=== PATIENT | male | born 1950 | race Caucasian/White ===

== ENCOUNTER → 2018-09-10 09:48 | Outpatient (CLI) | payer MEDICARE, SELFPAY ==
[2018-09-10 11:52] LABS: PSA,Total- Diagnostic 8.95 ng/mL (0.0-4.0)
== END ==
PROVIDERS: Family Provider Family Medicine; PCP Family Medicine; Referring Provider Urology; Visit Provider Urology
DX: R97.20 Elevated prostate specific antigen [PSA] (principal)
CPT/HCPCS: 36415; 84153

== ENCOUNTER → 2019-02-14 09:50 | Outpatient (CLI) | payer MEDICARE, SELFPAY ==
[2018-10-23 13:56] VITALS: BMI 24.3
[2019-02-14 11:16] LABS: PSA,Total- Diagnostic 8.88 ng/mL (0.0-4.0)
== END ==
PROVIDERS: Family Provider Family Medicine; PCP Family Medicine; Referring Provider Urology; Visit Provider Urology
DX: R97.20 Elevated prostate specific antigen [PSA] (principal)
CPT/HCPCS: 36415; 84153

== ENCOUNTER → 2019-10-16 09:23 | Outpatient (CLI) | payer MEDICARE, SELFPAY ==
[2019-10-16 09:01] VITALS: BMI 24.3
--- NOTE | 2019-10-16 10:12 | RAD_ITS ---
STUDY: X-RAY - RIGHT SHOULDER REASON FOR EXAM: Male, 68 years old. Pain. TECHNIQUE: 4 view(s) of the shoulder. COMPARISON: None. FINDINGS: There is moderate degenerative arthrosis of the glenohumeral articulation. There is degenerative arthrosis of the acromioclavicular joint without inferior osseous spur formation. Normal acromion. There is no acute fracture, dislocation or destructive osseous pathology. Normal humeral head and visualized proximal humerus. The soft tissue structures are unremarkable. Normal visualized pulmonary apex. RAD/Shoulder min 2 Views IMPRESSION: Degenerative changes of the right shoulder. Electronically Signed: Ramsey Vivas DO at 18:32 EST Tel [phone], Service support ,
[2019-10-16 12:29] LABS: ALB/GLOB Ratio 1.3 RATIO (0.9-2.4); AST(SGOT) 18 U/L (15-37); Alanine Aminotransfer ALT/SGPT 32 U/L (16-61); Albumin, Serum 4.1 g/dL (3.2-5.0); Alkaline Phosphatase 61 U/L (45-117); Anion Gap 5 (5-15); BUN 17 mg/dL (7-18); BUN/Creat Ratio 19.7 RATIO (10-20); Calcium,Total 9.1 mg/dL (8.5-10.1); Chloride 104 mmol/L (98-107); Cholesterol 188 mg/dL (200); Creatinine, Serum 0.86 mg/dL (0.70-1.30); EST Glomerular Filtration Rate 93 mL/min (>60); Est Glom Filt Rate - Afr Amer 112 mL/min (>60); Globulin 3.1 g/dL (2.2-4.2); Glucose 103 mg/dL (74-106); High Density Lipoprotein 45 mg/dL; PSA,Total - Annual Screen 7.85 ng/mL (0.00-4.00); Potassium 4.1 mmol/L (3.5-5.1); Protein, Total 7.2 g/dL (6.4-8.2); Sodium Level 139 mmol/L (136-145); Triglycerides 111 mg/dL; Very Low Density Lipoprotein 22 mg/dL (5-40)
== END ==
PROVIDERS: Family Provider Family Medicine; PCP Family Medicine; Referring Provider Family Medicine; Visit Provider Family Medicine
DX: M12.811 Other specific arthropathies, not elsewhere classified, right shoulder (principal); E78.5 Hyperlipidemia, unspecified; E11.9 Type 2 diabetes mellitus without complications; R97.20 Elevated prostate specific antigen [PSA]
CPT/HCPCS: 36415; 73030; 80053; 80061; 84153; G0103

== ENCOUNTER → 2020-03-25 | Outpatient (CLI) | payer MEDICARE, SELFPAY ==
[2020-03-17 11:10] VITALS: BMI 24.3
[2020-03-25 15:25] LABS: Hemoglobin A1c 5.9 % (3.8-5.6)
[2020-03-25 15:29] LABS: Cholesterol 201 mg/dL (200); High Density Lipoprotein 44 mg/dL; PSA,Total- Diagnostic 7.08 ng/mL (0.0-4.0); Triglycerides 222 mg/dL; Very Low Density Lipoprotein 44 mg/dL (5-40)
== END | disposition home or self-care (01) ==
LOC: LABSPEC 14:37
PROVIDERS: PCP Family Medicine; Referring Provider Family Medicine; Visit Provider Family Medicine
DX: E11.9 Type 2 diabetes mellitus without complications (principal); R97.20 Elevated prostate specific antigen [PSA]
CPT/HCPCS: 80061; 83036; 84153

== ENCOUNTER → 2020-09-25 08:18 | Outpatient (CLI) | payer MEDICARE, SELFPAY ==
[2020-03-17 11:10] VITALS: BMI 24.3
[2020-09-25 09:43] LABS: ALB/GLOB Ratio 1.4 RATIO (0.9-2.4); AST(SGOT) 20 U/L (15-37); Alanine Aminotransfer ALT/SGPT 33 U/L (16-61); Albumin, Serum 4.2 g/dL (3.2-5.0); Alkaline Phosphatase 65 U/L (45-117); Anion Gap 4 (5-15); BUN 16 mg/dL (7-18); BUN/Creat Ratio 18.5 RATIO (10-20); Calcium,Total 9.2 mg/dL (8.5-10.1); Chloride 102 mmol/L (98-107); Cholesterol 176 mg/dL (200); Creatinine, Serum 0.87 mg/dL (0.70-1.30); EST Glomerular Filtration Rate 92 mL/min (>60); Est Glom Filt Rate - Afr Amer 112 mL/min (>60); Globulin 3.1 g/dL (2.2-4.2); Glucose 101 mg/dL (74-106); High Density Lipoprotein 45 mg/dL; Potassium 3.7 mmol/L (3.5-5.1); Protein, Total 7.3 g/dL (6.4-8.2); Sodium Level 137 mmol/L (136-145); Triglycerides 105 mg/dL; Very Low Density Lipoprotein 21 mg/dL (5-40)
[2020-09-27 12:29] LABS: PSA, Total 8.6 ng/mL (0.0-4.0)
== END ==
PROVIDERS: PCP Family Medicine; Referring Provider Family Medicine; Visit Provider Family Medicine
DX: E11.9 Type 2 diabetes mellitus without complications (principal); R97.20 Elevated prostate specific antigen [PSA]
CPT/HCPCS: 36415; 80053; 80061; 84153

== ENCOUNTER → 2021-03-02 09:38 | Outpatient (CLI) | payer MEDICARE, SELFPAY ==
[2021-03-02 09:30] VITALS: BMI 24.3
[2021-03-02 13:18] LABS: Anion Gap 6 (5-15); BUN 18 mg/dL (7-18); BUN/Creat Ratio 23.7 RATIO (10-20); Calcium,Total 9.3 mg/dL (8.5-10.1); Chloride 102 mmol/L (98-107); Creatinine, Serum 0.76 mg/dL (0.70-1.30); EST Glomerular Filtration Rate 107 mL/min (>60); Est Glom Filt Rate - Afr Amer 130 mL/min (>60); Glucose 112 mg/dL (74-106); Potassium 4.4 mmol/L (3.5-5.1); Sodium Level 139 mmol/L (136-145)
== END ==
PROVIDERS: PCP Family Medicine; Referring Provider Family Medicine; Visit Provider Family Medicine
DX: E11.9 Type 2 diabetes mellitus without complications (principal); R97.20 Elevated prostate specific antigen [PSA]
CPT/HCPCS: 36415; 80048; 84153

== ENCOUNTER → 2022-03-02 | Outpatient (CLI) | payer MEDICARE, SELFPAY ==
[2022-03-02 12:31] LABS: ALB/GLOB Ratio 1.2 RATIO (0.9-2.4); AST(SGOT) 20 U/L (15-37); Alanine Aminotransfer ALT/SGPT 34 U/L (16-61); Albumin, Serum 3.8 g/dL (3.2-5.0); Alkaline Phosphatase 56 U/L (45-117); Anion Gap 8 (5-15); BUN 16 mg/dL (7-18); BUN/Creat Ratio 21.2 RATIO (10-20); Chloride 105 mmol/L (98-107); Creatinine, Serum 0.75 mg/dL (0.70-1.30); EST Glomerular Filtration Rate 108 mL/min (>60); Est Glom Filt Rate - Afr Amer 130 mL/min (>60); Globulin 3.1 g/dL (2.2-4.2); Glucose 111 mg/dL (74-106); PSA,Total- Diagnostic 6.88 ng/mL (0.0-4.0); Potassium 4.3 mmol/L (3.5-5.1); Protein, Total 6.9 g/dL (6.4-8.2); Sodium Level 139 mmol/L (136-145)
== END | disposition home or self-care (01) ==
LOC: BIMLAB 08:45
PROVIDERS: PCP Family Medicine; Visit Provider Family Medicine
DX: E11.9 Type 2 diabetes mellitus without complications (principal); R97.20 Elevated prostate specific antigen [PSA]
CPT/HCPCS: 36415; 80053; 84153

== ENCOUNTER → 2022-04-22 | Outpatient (CLI) | payer MEDICARE, SELFPAY ==
--- NOTE | 2022-04-22 08:56 | NEURO ---
NCS and/or EMG Patient Report Ordering Doctor: Rambo Warren DATE OF SERVICE: 04/22/22 Indication: Intermittent bilateral hand numbness and tingling. Symptoms are primarily in the first three digits and positional in nature. Hands are equal in terms of severity. History of bilateral carpal tunnel syndrome and release in 1982. Findings: Nerve conduction studies were performed in the right and left upper extremities. The right median motor study recording the abductor pollicis brevis showed a reduced amplitude, prolonged distal latency and borderline conduction velocity. The right ulnar motor study recording the abductor digiti minimi showed a normal amplitude, normal distal latency and normal conduction velocity. No conduction block or focal slowing was present across the elbow. The right median sensory response recording digit two showed a reduced amplitude, prolonged latency and markedly slowed conduction velocity. The right ulnar sensory response recording digit five showed a borderline amplitude, normal latency and normal conduction velocity. The right radial sensory response recording over the extensor snuff box showed a normal amplitude, latency and conduction velocity. The left median motor study recording the abductor pollicis brevis showed a borderline amplitude, prolonged distal latency and borderline conduction velocity. The left ulnar motor study recording the abductor digiti minimi showed a normal amplitude, normal distal latency and normal conduction velocity. No conduction block or focal slowing was present across the elbow. The left median sensory response recording digit two showed a borderline amplitude, prolonged latency and markedly slowed conduction velocity. The left ulnar sensory response recording digit five showed a normal amplitude, latency and conduction velocity. The left radial sensory response recording over the extensor snuff box showed a normal amplitude, latency and conduction velocity. Needle EMG of the right upper extremity muscles was performed. Active denervation was seen in the abductor pollicis brevis muscle. Motor units in the abductor pollicis brevis were distant and few. All other motor unit morphology, activation and recruitment patterns were normal. Limited needle EMG of the left abductor pollicis brevis was performed given the symmetry of the patient's symptoms. No denervation was seen, but occasional fasciculations were recorded. Motor units were large amplitude with long duration and reduced recruitment. Impression: This is an abnormal study. 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 The lesions are demyelinating with significant secondary axonal loss. The fibrillation and fasciculation potentials seen in the thenar muscles are suggestive of active axonal injury. These findings are compatible with the clinical diagnosis of recurrent carpal tunnel syndrome. Finally, there is no electrophysiologic evidence of superimposed cervical radiculopathy or brachial plexopathy in the right upper extremity. Lalito Bland D.O. Procedures Neurology CF Procedures [id number]: [id number] Musc tst done w/nerv tst davey (interp) (59)
== END | disposition home or self-care (01) ==
LOC: PSN 07:14
PROVIDERS: PCP Family Medicine; Referring Provider Family Medicine; Visit Provider Family Medicine
DX: R20.2 Paresthesia of skin (principal)
CPT/HCPCS: 95885; 95886; 95911

== ENCOUNTER → 2022-09-07 | Outpatient (CLI) | payer MEDICARE, SELFPAY ==
[2022-09-07 13:12] LABS: PSA,Total- Diagnostic 8.32 ng/mL (0.0-4.0)
== END | disposition home or self-care (01) ==
LOC: BIMLAB 08:52
PROVIDERS: PCP Family Medicine; Referring Provider Family Medicine; Visit Provider Family Medicine
DX: R97.20 Elevated prostate specific antigen [PSA] (principal)
CPT/HCPCS: 36415; 84153

== ENCOUNTER → 2022-11-24 | Outpatient (CLI) | payer MEDICARE, SELFPAY ==
[2022-11-24 16:17] LABS: Erythrocyte Sedimentation Rate 34 mm/hr (0-20)
[2022-11-24 16:27] LABS: Uric Acid 7.1 mg/dL (3.5-7.2)
== END | disposition home or self-care (01) ==
LOC: BIMLAB 14:37
PROVIDERS: PCP Family Medicine; Visit Provider Family Medicine
DX: M10.9 Gout, unspecified (principal)
CPT/HCPCS: 36415; 84550; 85652

== ENCOUNTER 2022-12-21 08:47 | Day surgery (SDC) | payer MEDICARE, SELFPAY ==
[2022-12-21] VITALS (7 sets, daily range): BP systolic 115–145; BP diastolic 52–82; PULSE 65–76; RESP 16–96; TEMP 36.3–36.9; O2SAT 94–97; BMI 27.2
[2022-12-21] MEDS: Lactated Ringers 1,000 ML 15 ML IV (09:30)
[2022-12-21 09:35] LABS: Bedside Glucose 120 mg/dL (74-106)
--- NOTE | 2022-12-21 11:50 | CHAPLAIN ---
Type of Pastoral Visit _x__ Initial Visit ___ Follow-up Visit ___ On-call Visit ___ General Patient Visit ___ Spiritual Assessment ___ Family Conference ___ Bereavement ___ Rapid Response ___ Code Blue ___ Other (describe below) Pastoral Care Referral From _x__ Patient ___ Family ___ Nurse ___ Physician ___ Environmental Health Nurse ___ Middle School Band Teacher ___ Other (describe below) Sacrament/Intervention _x__ Active listening ___ Anointing ___ Methodist ___ Bereavement ___ Communion ___ Cristel exploration ___ ___ Life review _x__ Prayer ___ Reconciliation ___ Sacrament of Sick ___ Supportive presence ___ Wedding ___ Other (describe below) Pastoral Comments pre surgery prayer and support for patient and family members
--- NOTE | 2022-12-21 12:10 | HP.PCM_ITS ---
HPI - General HPI Narrative HIRAL VAN, is a 72 M who presents for bilateral carpal tunnel release ECTR. OK to proceed. no changes to h and p. Both wrists marked. no further questions. still has some grease under his nails, warned could increase infection risk. Will take extra care to clean hand and wrists. explained post op restrictions. MR#: [id number] Acct: [id number] Name:HIRAL MCGRAW Rep #: [id number] : 1950 ? ? Provider: Dr. Augustine Barrientos MD Age/Sex:? 72/M ? ? Location: [facility] [place] Status: Signed Intake Intake Visit Reasons:?right wrist Chief Complaint: BL hands Is patient in pain?: No Allergies No Known Allergies Allergy (Verified 11/14/22 08:03) Medications aspirin 81 mg tablet,delayed release 81 mg PO DAILY 04/17/19 [History Confirmed 11/24/22] cinnamon bark 500 mg capsule (Cinnamon) 500 mg PO DAILY 04/17/19 [History Confirmed 11/24/22] glucosamine sulfate 500 mg tablet (Glucosamine) 500 mg PO BID 04/17/19 [History Confirmed 11/24/22] saw palmetto 500 mg capsule 500 mg PO BID 04/17/19 [History Confirmed 11/24/22] ibuprofen 200 mg tablet (Advil) 200 mg PO QHS PRN pain 10/16/19 [History Confirmed 11/24/22] vitamin B complex 1 cap PO DAILY #90 caps 06/30/21 [Rx Confirmed 11/24/22] lisinopril 20 mg-hydrochlorothiazide 25 mg tablet 1 tab PO QDAY #90 tabs 03/02/22 [Rx Confirmed 11/24/22] metformin 500 mg tablet 500 mg PO DAILY #90 tabs 09/07/22 [Rx Confirmed 11/24/22] simvastatin 40 mg tablet 40 mg PO QHS #90 tabs 09/07/22 [Rx Confirmed 11/24/22] PFSH Medical History? A-fib Heart murmur Hyperlipemia Hypertension Seasonal allergies Type 2 diabetes mellitus Surgical History? History of carpal tunnel release History of hernia repair Family History? Mother Asthma CVA (cerebral vascular accident)Father Parkinsons Social History? Smoking Status:? Never smoker alcohol intake:? never substance use type:? does not use what type of physical activity do you participate in:? none HPI right wrist Details: UrineParts of this documentation were recorded by a scribe, this documentation accurately reflects the service provided and the decisions made by me, Dr. Augustine Barrientos MD 11/24/22 [id number]. HIRAL VAN is a 72 year old M here today for follow-up on patient request to change his consent from unilateral to bilateral carpal tunnel release. He has a surgical date booked for in a few weeks. Likes to play trArthenaet. Had prior rel ease on both sides in the past. Ortho Exam General General: Yes no acute distress Neurologic: Yes alert and Yes oriented x3 Psychologic: Yes reasonable and appropriate Supplemental Info Impression: This is an abnormal study. 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 The lesions are demyelinating with significant secondary axonal loss. The fibrillation and fasciculation potentials seen in the thenar muscles are suggestive of active axonal injury. These findings are compatible with the clinical diagnosis of recurrent carpal tunnel syndrome. Finally, there is no electrophysiologic evidence of superimposed cervical radiculopathy or brachial plexopathy in the right upper extremity. Coding Level of Care Code Off vis,est,level 3 Diagnoses CTS (carpal tunnel syndrome)? G56.03 ? ? ? Laterality: bilateral Assessment and Plan Assessment and Plan (1) CTS (carpal tunnel syndrome): ?Status:?Acute ?Qualifiers: ?Laterality:?bilateral? Qualified Code(s):?G56.03 - Carpal tunnel syndrome, bilateral upper limbs ?Plan: 82-year-old man with evidence of bilateral carpal tunnel syndrome.? He wishes to change his consent form to have them both done at the same time.? Discussed the pros and cons risks and benefits of performing one side first versus bilateral he would like to change his consent form for bilateral endoscopic carpal tunnel release possible open.? I again reminded him there may be more risks with bilateral and that this is a revision surgery results may be more unpredictable.? In addition he was working on his vehicle had quite a bit of grease under his fingernails asked him the day of surgery to really make sure that he cleans under his nails and has his hands as clean as possible to mitigate the infection risk. Pros and cons risks and benefits were discussed with the patient including but not limited to infection, pain, stiffness, bleeding, damage to surrounding structures, neurovascular injury, recurrence or retear, failure or wear of hardware or fixation, instability, fracture, deep vein thrombosis and pulmonary embolism, anesthetic risks, patient dissatisfaction, need for further surgery and other risks.? Patient understood and wished to proceed with surgery, and signed the informed consent documentation. [facility], [facility] Medical History (Updated 12/14/22 @ 08:19 by Addie Andrade) A-fib Arthritis Back pain Diabetes Dietary restriction Heart murmur High cholesterol History of atrial fibrillation History of edema History of rheumatic fever History of stress test Hyperlipemia Hypertension Hypertension Leg cramps Non-smoker Seasonal allergies Shortness of breath on exertion Syncope Type 2 diabetes mellitus Wears glasses Home Medications aspirin 81 mg tablet,delayed release 81 mg PO DAILY 04/17/19 [History Last Taken Unknown] cinnamon bark 500 mg capsule (Cinnamon) 500 mg PO DAILY 04/17/19 [History Last Taken Unknown] glucosamine sulfate 500 mg tablet (Glucosamine) 500 mg PO BID 04/17/19 [History Last Taken Unknown] saw palmetto 500 mg capsule 500 mg PO BID 04/17/19 [History Last Taken Unknown] vitamin B complex 1 cap PO DAILY #90 caps 06/30/21 [Rx Last Taken Unknown] lisinopril 20 mg-hydrochlorothiazide 25 mg tablet 1 tab PO QDAY #90 tabs 03/02/22 [Rx Last Taken Unknown] metformin 500 mg tablet 500 mg PO DAILY #90 tabs 09/07/22 [Rx Last Taken Unknown] simvastatin 40 mg tablet 40 mg PO QHS #90 tabs 09/07/22 [Rx Last Taken Unknown] allopurinol 300 mg tablet 300 mg PO DAILY #90 tabs 11/30/22 [Rx Last Taken Unknown] Allergy/AdvReac Type Severity Reaction Status Date / Time No Known Allergies Allergy Verified 12/21/22 09:24 Family History Mother Asthma CVA (cerebral vascular accident) Father Parkinsons Surgical History (Updated 12/14/22 @ 08:19 by Addie Andrade) History of carpal tunnel release History of hernia repair Social History Smoking Status: Never smoker alcohol intake: never substance use type: does not use what type of physical activity do you participate in: none Vital Signs Vital Signs Vital Signs: 12/21/22 09:25 12/21/22 09:25 Temperature 98.4 F Temperature Source Temporal Pulse Rate 76 Respiratory Rate 16 Respiratory Pattern Normal Blood Pressure 136/68 H Blood Pressure Mean 90 Pulse Ox 95 Oxygen Delivery Method Room Air Weight Weight: 174 lb 2.643 oz Body Mass Index (BMI) 27.2 Results Lab / Micro Data Labs: Laboratory Results - last 24 hr 12/21/22 09:16: POC Glucose 120 H
[2022-12-21] MEDS: Cefazolin 2 GM in 0.9% Normal Saline 100 ML IV (12:45)
--- NOTE | 2022-12-21 14:02 | OP.PCM_ITS ---
Problems Associated Problem List Diagnoses (1) Bilateral carpal tunnel syndrome: Report of Operation Date of Procedure: 12/21/22 Pre-Operative Diagnosis: bilat carpal tunnel syndrome Post-Operative Diagnosis: same Surgery/Procedure Performed:: bilat ECTR Surgeon: Augustine Barrientos Type of Anesthesia: General and Local Anesthesiologist: Marc Salvador Estimated Blood Loss (mL): 5 Description of Procedure: Patient was brought to the operating room theater.? The patient was administered 2 g of IV Ancef prior to the start of the procedure.? Placed supine on the operating room table.? Anesthesia induced GA.? SCDs on the legs.? Tourniquet applied to the bilat operative extremity, appropriately padded. Arm table used. Both wrists, operative extremity prepped and draped in the usual sterile fashion with chlorhexidine-based prep solution allowing over 3 minutes drying time prior to draping.? Preoperative timeout performed to confirm the site patient and the surgery. Procedure carried out on both sides Right : Used the Arthex center line endoscopic carpal tunnel kit / technique. Tourniquet up 250mm. ? I made a transverse 2 cm incision in line with the? transverse wrist crease.? This was in line with the fourth digit.? I carried the dissection down through skin and subcutaneous tissue achieved meticulous hemostasis. Just ulnar to palmaris tendon.? I incised the antebrachial fascia.? I passed sequential dilators into the carpal tunnel along the radial border of the Guyon's canal aiming for the fourth digit with the hand in extension.? I used a synovial elevator to identify the transverse fibers of the transverse carpal tunnel ligament.? Passed the scope into the carpal tunnel. Once I had identified the full proximal and distal extent of the ligament I fully released the ligament under direct visualization by deploying the blade and slowly withdrawing the scope made sequential passes until I no longer felt tension as well as the entire extent of the ligament was released under direct visualization.?Sounded the tunnel with del real tenotomy scissors, complete release, no bands. Arthroscope light was more visible through the skin. Pictures taken and saved. Wound thoroughly irrigated.? Tourniquet let down prior to end of the case and meticulous hemostasis achieved.? Thorough irrigation.? ? Incision closed with 3- 0 Monocryl.? Steri-Strips were applied after the skin was cleaned and dried. Adaptic, gauze, loose wrapped Esau. Left : Used the Arthex center line endoscopic carpal tunnel kit / technique.? Tourniquet up 250mm. I made a transverse 2 cm incision in line with the? transverse wrist crease.? This was in line with the fourth digit.? I carried the dissection down through skin and subcutaneous tissue achieved meticulous hemostasis. Just ulnar to palmaris tendon.? I incised the antebrachial fascia.? I passed sequential dilators into the carpal tunnel along the radial border of the Guyon's canal aiming for the fourth digit with the hand in extension.? I used a synovial elevator to identify the transverse fibers of the transverse carpal tunnel ligament.? Passed the scope into the carpal tunnel. Once I had identified the full proximal and distal extent of the ligament I fully released the ligament under direct visualization by deploying the blade and slowly withdrawing the scope made sequential passes until I no longer felt tension as well as the entire extent of the ligament was released under direct visualization.?Sounded the tunnel with del real tenotomy scissors, complete release, no bands. Arthroscope light was more visible through the skin. Pictures taken and saved. Wound thoroughly irrigated.? Tourniquet let down prior to end of the case and meticulous hemostasis achieved.? Thorough irrigation.? ? Incision closed with 3- 0 Monocryl.? Steri-Strips were applied after the skin was cleaned and dried. Adaptic, gauze, loose wrapped Esau. Patient woken up,? transferred off the operating room table and taken to postanesthetic care unit in stable condition. All sponge needle instrument counts were correct no complications.? Plan for the patient to be discharged home according to day surgery criteria when they are comfortable. Follow-up in the office in 2 days time. Complications none Admit VTE Documentation VTE Present on Admission: No VTE Mechan Device Prophylaxis: None VTE Pharm Prophylaxis ordered?: No Reason prophylaxis not ordered:: Treatment Not Indicated Procedures Musculoskeletal 20xxx-29xxx: Other Procedure See Report
--- NOTE | 2022-12-21 14:05 | DCINST_ITS ---
Discharge Instructions Diet Discharge Diet: No restrictions Activity Discharge Activity: Return to Normal Activity Ice area for (Minutes): 10 Additional Activity Instructions:: ok for finger and wrist ROM, no heavy gripping or twisting Dressing / Incision Call your doctor if your incision/area has: Continuous Slow Oozing, Sudden Increased Bleeding, Increased Pain/ Swelling, Increased Redness, Foul Smelling Discharge and Swelling at the incision site Change Dressing in: do not change dressing Follow Up Care Please Follow Up With: Augustine Barrientos MD When: 2 days Test Results: Test results from this visit will be discussed in further detail at your follow- up appointment, if applicable. Discharge Plan Admission Attending Provider: Augustine Barrientos Primary Care Provider: Rambo Warren Discharge Orders/Prescriptions Prescriptions: No Action aspirin 81 mg tablet,delayed release (DR/EC) 81 mg PO DAILY saw palmetto 500 mg capsule 500 mg PO BID glucosamine sulfate [Glucosamine] 500 mg tablet 500 mg PO BID cinnamon bark [Cinnamon] 500 mg capsule 500 mg PO DAILY vitamin B complex Capsule 1 cap PO DAILY Qty: 90 1RF lisinopril-hydrochlorothiazide 20-25 mg tablet 1 tab PO QDAY Qty: 90 3RF simvastatin 40 mg tablet 40 mg PO QHS Qty: 90 1RF metformin 500 mg tablet 500 mg PO DAILY Qty: 90 1RF allopurinol 300 mg tablet 300 mg PO DAILY Qty: 90 0RF Referrals / Follow Up: Rambo Warren DO [Primary Care Provider] - Disposition Discharge Orders: Discharge Patient (Routine); Ordered 12/21/22 Ordered By: Augustine Barrientos
[2022-12-21 15:11] LABS: Bedside Glucose 94 mg/dL (74-106)
== END 2022-12-21 16:00 | disposition home or self-care (01) ==
LOC: SDC 08:54 → AC 08:55
PROVIDERS: PCP Family Medicine; Referring Provider Orthopaedic Surgery Sports Medicine; Visit Provider Orthopaedic Surgery Sports Medicine
PROC: (CPT 29848; principal; 2022-12-21 10:15)
DX: G56.03 Carpal tunnel syndrome, bilateral upper limbs (principal); E11.40 Type 2 diabetes mellitus with diabetic neuropathy, unspecified; I10 Essential (primary) hypertension; E78.00 Pure hypercholesterolemia, unspecified; Z79.82 Long term (current) use of aspirin; Z79.84 Long term (current) use of oral hypoglycemic drugs; E78.5 Hyperlipidemia, unspecified
CPT/HCPCS: 29848; 01810; 82962; J7120; J2405

== ENCOUNTER → 2022-12-27 | Outpatient (CLI) | payer MEDICARE, SELFPAY ==
[2022-12-27 12:55] LABS: Uric Acid 4.2 mg/dL (3.5-7.2)
== END | disposition home or self-care (01) ==
LOC: BIMLAB 11:37
PROVIDERS: PCP Family Medicine; Referring Provider Family Medicine; Visit Provider Family Medicine
DX: M10.9 Gout, unspecified (principal)
CPT/HCPCS: 36415; 84550

== ENCOUNTER → 2023-04-17 | Outpatient (CLI) | payer MEDICARE, SELFPAY ==
[2023-04-17 15:38] LABS: ALB/GLOB Ratio 1.4 RATIO (0.9-2.4); AST(SGOT) 22 U/L (15-37); Alanine Aminotransfer ALT/SGPT 32 U/L (16-61); Albumin, Serum 3.9 g/dL (3.2-5.0); Alkaline Phosphatase 64 U/L (45-117); Anion Gap 6 (5-15); BUN 15 mg/dL (7-18); BUN/Creat Ratio 18.5 RATIO (10-20); Calcium,Total 9.1 mg/dL (8.5-10.1); Chloride 104 mmol/L (98-107); Cholesterol 175 mg/dL (200); Creatinine, Serum 0.81 mg/dL (0.70-1.30); EST Glomerular Filtration Rate 99 mL/min (>60); Est Glom Filt Rate - Afr Amer 120 mL/min (>60); Globulin 2.8 g/dL (2.2-4.2); Glucose 99 mg/dL (74-106); High Density Lipoprotein 46 mg/dL; Potassium 4.1 mmol/L (3.5-5.1); Protein, Total 6.7 g/dL (6.4-8.2); Sodium Level 138 mmol/L (136-145); Triglycerides 111 mg/dL; Very Low Density Lipoprotein 22 mg/dL (5-40)
== END | disposition home or self-care (01) ==
LOC: BIMLAB 13:24
PROVIDERS: PCP Family Medicine; Visit Provider Family Medicine
DX: E11.9 Type 2 diabetes mellitus without complications (principal); I10 Essential (primary) hypertension; R97.20 Elevated prostate specific antigen [PSA]
CPT/HCPCS: 36415; 80053; 80061; 83036; 84153

== ENCOUNTER → 2023-10-18 | Outpatient (CLI) | payer MEDICARE, SELFPAY | END | disposition home or self-care (01) | LOC: BIMLAB 13:29 | PROVIDERS: PCP Family Medicine; Referring Provider Family Medicine; Visit Provider Family Medicine | DX: R97.20 Elevated prostate specific antigen [PSA] (principal) | CPT/HCPCS: 36415; 84153 ==

== ENCOUNTER → 2023-11-14 | Outpatient (CLI) | payer MEDICARE, SELFPAY ==
--- OUTSIDE RECORDS SUMMARY | 2023-11-14 06:29 | XMS RPT_ITS | CCD ---
Author Name Unknown Address [address] [place] [address] Organization [facility] Care Team Providers Care Photograph Enlarger Name Role Phone SHAYNA CASTANON Unavailable Unavailable SHAYNA CASTANON Unavailable Unavailable Results Test Name Value Interpretation Reference Range Facil ity Encounters Encounter Date Encounter Type Care Provider Facility Start: 04-11-2018 End: 04-12-2018 Ambulatory SHAYNA CASTANON Facility:[facility] Payers Date Payer Category Payer Unknown [id number] Summary Purpose Family History No Family History Records Found Advance Directives No Advanced Directives Records Found Additional Source Comments (unrecognized sect ion and content) No Status Records Found INFORMATION SOURCE (unrecogn ized section and content) FOR RECORDS PERTAINING TO PATIENTS WHO ARE OR HAVE BEEN ENROLLED IN A CHEMICAL DEPENDENCY/SUBSTANCEABUSE PROGRAM, SOME INFORMATION MAY BE OMITTED. This clinical summary was aggregated from multiple sources. Caution should be exercised in using it in the provision of clinical care. This summary normalizes information from multiple sources, and as a consequence, information in this document may materially change the coding, format and clinical context of patient data. In addition, data may be omitted in some cases. CLINICAL DECISIONS SHOULD BE BASED ON THE PRIMARY CLINICAL RECORDS. [employer] [facility]. provides no warranty or guarantee of the accuracy or completeness of information in this document.
--- NOTE | 2023-11-14 06:40 | MRI_ITS ---
STUDY: MRI RIGHT SHOULDER REASON FOR EXAM: Male, 73 years old. Rotator cuff arthropathy. TECHNIQUE: Standardized fat and water weighted pulse sequences were obtained in all 3 orthogonal planes. COMPARISON: Left shoulder radiographs dated 10/16/2019. FINDINGS: There is supraspinatus tendinosis with a high-grade partial thickness articular surface tear, overall measuring 5 mm in length and 5 mm in width (coronal T2 series 6 image 17; sagittal T2 series 7 image 10). There is infraspinatus and subscapularis tendinosis. Normal teres minor tendon. Normal supraspinatus muscle. Normal infraspinatus muscle. Normal subscapularis muscle. Normal teres minor muscle. There is glenohumeral arthrosis with joint space narrowing, marginal osteophyte formation, high-grade chondromalacia, and articular surface remodeling. There is degenerative tearing of the superior and posterior glenoid labrum. Intact humeral head and visualized proximal humerus. There is tendinosis of the intracapsular long biceps tendon. There is hypertrophic acromioclavicular arthrosis, with inferior osteophyte formation, with mild effacement of the supraspinatus myotendinous junction. There is a Type II morphology (curved), with a neutral orientation. There is no subacromial-subdeltoid bursal fluid. Normal visualized coracohumeral and coracoacromial ligaments. Normal quadrilateral space. Normal axillary space. Normal deltoid muscle. Normal trapezius muscle. MRI/Upper Ext Joint Only(Routine) IMPRESSION: Supraspinatus tendinosis with a 5 x 5 mm high-grade partial thickness articular surface tear. Hypertrophic acromioclavicular arthrosis, with inferior osteophyte formation, with mild effacement of the supraspinatus myotendinous junction. Infraspinatus and subscapularis tendinosis. Glenohumeral arthrosis with degenerative tearing of the superior and posterior glenoid labrum. Intracapsular long biceps tendinosis. Electronically Signed: Duncan Hickey MD at 8:16 EST ,
== END | disposition home or self-care (01) ==
PROVIDERS: PCP Family Medicine; Referring Provider Family Medicine; Visit Provider Family Medicine
DX: M12.811 Other specific arthropathies, not elsewhere classified, right shoulder (principal)
CPT/HCPCS: 73221

== ENCOUNTER → 2024-01-09 | Outpatient (CLI) | payer MEDICARE, SELFPAY ==
--- OUTSIDE RECORDS SUMMARY | 2024-01-09 13:13 | XMS RPT_ITS | CCD ---
Author Name Unknown Address [address] [place] [address] Organization [facility] Care Team Providers Care Voice Writing Reporter Name Role Phone SHAYNA CASTANON Unavailable Unavailable SHAYNA CASTANON Unavailable Unavailable Results Test Name Value Interpretation Reference Range Facil ity Encounters Encounter Date Encounter Type Care Provider Facility Start: 04-11-2018 End: 04-12-2018 Ambulatory SHAYNA CASTANON Facility:[facility] Payers Date Payer Category Payer Unknown [id number] Summary Purpose Family History No Family History [...] BE BASED ON THE PRIMARY CLINICAL RECORDS. [employer] [facility]. provides no warranty or guarantee of the accuracy or completeness of information in this document.
[2024-01-11 12:09] LABS: PSA, Free 1.11 ng/mL; PSA, Free % 13.2 % (.)
== END | disposition home or self-care (01) ==
LOC: LAB 12:38
PROVIDERS: PCP Family Medicine; Referring Provider Urology; Visit Provider Urology
DX: R97.20 Elevated prostate specific antigen [PSA] (principal)
CPT/HCPCS: 36415; 84153; 84154

== ENCOUNTER → 2024-02-05 | Outpatient (CLI) | payer MEDICARE, SELFPAY ==
--- NOTE | 2024-02-05 | IMM_PTH ---
PATIENT: [facility] VAN [facility] U[facility][id number] AGE/SX: 73/M ROOM: RE02/05/[address]: Dr. Ray Houser MD : 1950 BED: DIS: 02/05/2024 SPEC #: [id number] RECD: 02/07/24 13:36 STATUS: ARYA REQ #: [id number] GARY: 02/05/24 00:[address]: Ray Houser DEPT: IMMUNOHISTOCHEMISTRY RECD BY: Sincere Calderon ENTERED: 02/07/24 13:38 SP TYPE: IMMUNO OTHR DR: Dr. Rambo Warren, DO Tissues: B - PROSTATE RIGHT F - PROSTATE LEFT Procedures: 34BE12 (add) P40 (initial) PHYSICIAN & INSTITUTION [place] [id number] SPECIMEN INFORMATION: Tissue Source: B- Prostate, right mid, F- Prostate, left base Clinical Info: Elevated PSA Specimen Number: [id number] B&F CPT code: 78481 METHODOLOGY: Deparaffinized sections of prefer/formalin-fixed tissue or PAP/DQ stained slides are incubated with monoclonal/polyclonal antibodies/oligonucleotide probes. Localization is made via biotin free immunoperoxidase method. Appropriate controls are performed and reacted as expected. Results on target cell population are indicated in the following table: RESULTS: ANTIBODY / CLONE RESULT Block B P40 (BC28) negative 34BE12 (34BE12) negative Block F P40 (BC28) negative 34BE12 (34BE12) negative These tests were developed and their performance characteristics determined by [facility]. They may not have been cleared or approved by the U.S. Food and Drug Administration. The FDA has determined that such clearance or approval is not necessary. The above immunohistochemical/dualISH markers are ordered and reviewed by the Pathologist. INTERPRETATION: B. Prostate, right mid, biopsy: Adenocarcinoma. F. Prostate, left base, biopsy: Adenocarcinoma SJ/mr 02/08/24
--- NOTE | 2024-02-05 13:00 | PROSBIL_PTH ---
PAT[facility] U[id number] AGE/SX: 73/M ROOM: RE02/05/[address]: Dr. Ray Houser MD : 1950 BED: DIS: 02/05/2024 SPEC #: [id number] RECD: 02/06/24 08:41 STATUS: ARYA RERosa #: [id number] GARY: 02/05/24 13:[address]: Ray Houser DEPT: SURGICAL PATHOLOGY RECD BY: Jennyfer Ghosh ENTERED: 02/06/24 08:41 SP TYPE: PROST BX DONNA DR: Dr. Rambo Warren, DO Tissues: A - PROSTATE RIGHT B - PROSTATE RIGHT C - PROSTATE RIGHT D - PROSTATE LEFT E - PROSTATE LEFT F - PROSTATE LEFT Procedures: PROSTATE BX HEADER OPERATION: Prostate biopsy PRE-OP DIAGNOSIS: Elevated PSA TISSUE SUBMITTED: A - Right apex, B - Right mid, C - Right base, D - Left apex, E - Left mid, F - Left base MICROSCOPIC DIAGNOSIS A. Right prostate, apex, core biopsy: Prostatic tissue, negative for malignancy. B. Right prostate, mid, core biopsy: Prostatic adenocarcinoma. Benita grade: 3+3=6 Number of cores involved: 1/2 Proportion of tissue involved: ~5% Perineural invasion: Not identified. Greatest tumor length: 0.2 cm Chronic inflammation. See comment. C. Right prostate, base, core biopsy: Prostatic tissue, negative for malignancy. D. Left prostate, apex, core biopsy: Prostatic tissue, negative for malignancy. Focal minimal acute and chronic inflammation. E. Left prostate, mid, core biopsy: Prostatic tissue, negative for malignancy. F. Left prostate, base, core biopsy: Prostatic adenocarcinoma. Hector grade: 3+3=6 Number of cores involved: 2/2 Proportion of tissue involved: ~5 % Perineural invasion: Not identified. Greatest tumor length: 0.2 cm, discontinuous. Focal high-grade prostatic intraepithelial neoplasia (HGPIN). See comment. SJ/mr 02/07/24 COMMENT B&F. Immunohistochemistry ([id number]) supports the above diagnosis. Case has been reviewed in consultation with Dr. Cabezas who concurs with the above diagnosis. IDC:AM MICROSCOPIC DESCRIPTION Slides are reviewed. GROSS DESCRIPTION A - Received is one container designated prostate, right apex. The specimen consists of two elongated fragments of light osorio-white soft tissue each measuring 1.5cm and 1.7cm in length and 0.1 cm in diameter. The specimen is totally submitted in one cassette. B - Received is one container designated prostate, right mid. The specimen consists of two elongated fragments of light osorio-white soft tissue each measuring 1.2 cm in length and 0.1 cm in diameter. The specimen is totally submitted in one cassette. C - Received is one container designated prostate, right base. The specimen consists of two elongated fragments of light osorio-white soft tissue each measuring 1.0cm and 1.3 cm in length and 0.1 cm in diameter. The specimen is totally submitted in one cassette. D - Received is one container designated prostate, left apex. The specimen consists of two elongated fragments of light osorio-white soft tissue each measuring 1.4cm and 1.5 cm in length and 0.1 cm in diameter. The specimen is totally submitted in one cassette. E - Received is one container designated prostate, left mid. The specimen consists of two elongated fragments of light osorio-white soft tissue each measuring 1.0cm and 1.5 cm in length and 0.1 cm in diameter. The specimen is totally submitted in one cassette. F - Received is one container designated prostate, left base. The specimen consists of two elongated fragments of light osorio-white soft tissue each measuring 1.2 and 1.5 cm in length and 0.1 cm in diameter. The specimen is totally submitted in one cassette. BELKYS/ 02/06/24 TC:0 CPT: G0146
== END | disposition home or self-care (01) ==
PROVIDERS: PCP Family Medicine; Referring Provider Urology; Visit Provider Urology
DX: R97.20 Elevated prostate specific antigen [PSA] (principal)
CPT/HCPCS: 88305; 88341; 88342; G0416

== ENCOUNTER → 2024-02-15 | Outpatient (CLI) | payer MEDICARE, SELFPAY ==
[2024-02-15 16:45] LABS: Absolute Lymphocyte Count 0.99 X10^3/uL (0.83-4.51); Absolute Neutrophil Count 5.8 X10^3/uL (2.0-7.7); Basophil# 0.04 X10^3/uL; Basophil% 0.5 % (0-1); Eosinophil# 0.18 X10^3/uL; Eosinophils% 2.3 % (0-5); Hematocrit 49.6 % (40-54); Hemoglobin 15.5 g/dL (13.0-16.5); Lymphocyte # 0.99 X10^3/ul (0.83-4.51); Lymphocyte % 12.6 % (19-41); Mean Corp Hgb Conc 31.3 g/dL (32-36); Mean Corpuscular Hgb 28.1 pg (27.0-32.0); Mean Corpuscular Volume 89.9 fL (80-94); Mean Platelet Vol. 11.7 fl (6.2-12.0); Monocyte# 0.82 X10^3/uL; Monocyte% 10.4 % (0-10); NRBC Flagged by Analyzer 0 % (0-5); Neutrophil # 5.82 X10^3/uL (2.7-7.7); Neutrophil % 73.9 % (47-70); Platelet Count 230 K/mm3 (150-450); RBC Distribution Width SD 42.5 fl (35.1-43.9); Red Blood Count 5.52 M/mm3 (4.6-6.2); White Blood Count 7.9 K/mm3 (4.4-11.0)
[2024-02-15 17:18] LABS: ALB/GLOB Ratio 1.2 RATIO (0.9-2.4); AST(SGOT) 23 U/L (15-37); Alanine Aminotransfer ALT/SGPT 32 U/L (16-61); Albumin, Serum 3.6 g/dL (3.2-5.0); Alkaline Phosphatase 63 U/L (45-117); Anion Gap 6 (5-15); BUN 16 mg/dL (7-18); BUN/Creat Ratio 16.9 RATIO (10-20); Calcium,Total 9.3 mg/dL (8.5-10.1); Chloride 105 mmol/L (98-107); Creatinine, Serum 0.94 mg/dL (0.70-1.30); EST Glomerular Filtration Rate 83 mL/min (>60); Est Glom Filt Rate - Afr Amer 100 mL/min (>60); Globulin 3.1 g/dL (2.2-4.2); Glucose 141 mg/dL (74-106); Potassium 3.8 mmol/L (3.5-5.1); Protein, Total 6.7 g/dL (6.4-8.2); Sodium Level 139 mmol/L (136-145)
[2024-02-15 17:23] LABS: BNP,B-Type NATRIURETIC PEPTIDE 33.7 pg/mL (0-100)
== END | disposition home or self-care (01) ==
LOC: BIMLAB 14:42
PROVIDERS: PCP Family Medicine; Referring Provider Physician Assistant; Visit Provider Physician Assistant
DX: I10 Essential (primary) hypertension (principal); R06.00 Dyspnea, unspecified
CPT/HCPCS: 36415; 80053; 83880; 85025

== ENCOUNTER → 2024-03-13 | Outpatient (CLI) | payer MEDICARE, SELFPAY ==
--- NOTE | 2024-03-13 19:19 | STRESSREP_ITS ---
Stress Test Report Exercise myocardial perfusion stress test. 73-year-old man with a history of dyspnea on exertion Stress protocol: Resting EKG demonstrates normal sinus rhythm with a rate of 67 bpm resting blood pressure is 134/82 mmHg. The patient exercised according to the regular Juan Carlos protocol for a total duration of 6 minutes attaining a maximum heart rate of 142 bpm which was 97% of maximum predicted heart rate; the maximum workload was 7 metabolic equivalents. At rest there were no ST or T wave changes noted to suggest ischemia and at peak exercise upsloping ST changes only were noted which did not meet the criteria for ischemia. No clinical angina was noted the test was terminated due to the target heart rate being achieved/fatigue. The peak blood pressure was 162/82 mmHg. Rate-pressure product was 21 700. Myocardial perfusion protocol. 13.4 mCi of technetium 99m sestamibi was injected at rest. The patient exercised according to regular Juan Carlos protocol for total duration of 6 minutes and at peak exercise 45 mCi of technetium 99m sestamibi was injected stress images were obtained stress and rest images were reconstructed in comparing the short axis vertical long and horizontal long axis. Gated images were also obtained. Perfusion SPECT analysis: Review of the stress images demonstrate normal uptake of tracer noted in all a reas of the myocardium. The resting images similarly demonstrate normal uptake of tracer noted in all areas of the myocardium. No areas of reversibility are noted to suggest ischemia no previous infarct was noted. Gated SPECT analysis: The gated ejection fraction is 60%. Conclusion: Normal exercise myocardial perfusion stress test at a moderate workload Preserved ejection fraction.
== END | disposition home or self-care (01) ==
LOC: CVS 06:36
PROVIDERS: PCP Family Medicine; Referring Provider Physician Assistant; Visit Provider Physician Assistant
DX: R06.09 Other forms of dyspnea (principal)
CPT/HCPCS: 78452; 93017; A9500; A4216

== ENCOUNTER → 2024-08-20 | Outpatient (CLI) | payer MEDICARE, SELFPAY | END | disposition home or self-care (01) | LOC: LAB 09:05 | PROVIDERS: PCP Family Medicine; Referring Provider Nurse Practitioner; Visit Provider Nurse Practitioner | DX: C61 Malignant neoplasm of prostate (principal) | CPT/HCPCS: 36415; 84153 ==

== ENCOUNTER → 2024-10-14 | Outpatient (CLI) | payer MEDICARE, SELFPAY ==
--- NOTE | 2024-10-14 19:00 | CT_ITS ---
STUDY: CT RIGHT SHOULDER REASON FOR EXAM: Male, 73 years old. Blueprint planning for reverse shoulder replacement. RADIATION DOSAGE (If Supplied By Facility): CTDIvol = ( 23.57 ) mGy, DLP = ( 674.06 ) mGycm TECHNIQUE: The patient was scanned in a multi detector CT scanner. High resolution transaxial imaging was performed without the administration of intravenous contrast material. Sagittal and coronal images were reconstructed. Individualized dose optimization techniques were used for this CT. COMPARISON: Right shoulder radiographs dated 10/16/2019. FINDINGS: There is severe degenerative arthrosis of the right glenohumeral joint with [id number], marginal osteophyte formation, remodeling of the articular surfaces, and subchondral sclerosis/cyst formation. There is flattening and retroversion of the posterior glenoid rim. Normal glenoid neck and visualized scapula. Intact humeral head, neck and tuberosities. Normal coracoid process. There is no demonstrated acute fracture. Normal visualized lateral clavicle. There is mild hypertrophic acromioclavicular arthrosis. There is a Type II morphology (curved), with a neutral orientation. Normal visualized muscles and soft tissue structures. 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 Flattening and retroversion of the posterior glenoid rim. Mild hypertrophic acromioclavicular arthrosis. Electronically Signed: Duncan Hickey MD at 14:41 EST ,
== END | disposition home or self-care (01) ==
PROVIDERS: PCP Family Medicine; Referring Provider Orthopaedic Surgery Sports Medicine; Visit Provider Orthopaedic Surgery Sports Medicine
DX: M12.811 Other specific arthropathies, not elsewhere classified, right shoulder (principal)
CPT/HCPCS: 73200

== ENCOUNTER 2024-12-04 06:24 | Day surgery (SDC) | payer MEDICARE, SELFPAY ==
[2024-11-21 09:16] LABS: Absolute Lymphocyte Count 0.68 X10^3/uL (0.83-4.51); Basophil# 0.06 X10^3/uL; Basophil% 0.7 % (0-1); Eosinophil# 0.41 X10^3/uL; Hematocrit 46.9 % (40-54); Hemoglobin 14.8 g/dL (13.0-16.5); Lymphocyte # 0.68 X10^3/ul (0.83-4.51); Lymphocyte % 8.3 % (19-41); Mean Corp Hgb Conc 31.6 g/dL (32-36); Mean Corpuscular Hgb 28.2 pg (27.0-32.0); Mean Corpuscular Volume 89.3 fL (80-94); Monocyte% 12.2 % (0-10); NRBC Flagged by Analyzer 0 % (0-5); Neutrophil # 6.02 X10^3/uL (2.7-7.7); Neutrophil % 73.7 % (47-70); Platelet Count 222 K/mm3 (150-450); RBC Distribution Width CV 13.8 % (11.6-14.6); RBC Distribution Width SD 45.1 fl (35.1-43.9); Red Blood Count 5.25 M/mm3 (4.6-6.2); White Blood Count 8.2 K/mm3 (4.4-11.0)
[2024-11-21 09:33] LABS: Prothrombin Time (Protime)PT. 13.7 SECONDS (11.7-14.9)
[2024-11-21 09:34] LABS: Partial Thromboplast Time 28.3 Seconds (24.1-36.2)
[2024-11-21 10:01] LABS: Anion Gap 7 (5-15); BUN 21 mg/dL (7-18); BUN/Creat Ratio 23.2 RATIO (10-20); Calcium,Total 9.6 mg/dL (8.5-10.1); Chloride 105 mmol/L (98-107); EST Glomerular Filtration Rate 87 mL/min (>60); Est Glom Filt Rate - Afr Amer 105 mL/min (>60); Glucose 139 mg/dL (74-106); Potassium 4.1 mmol/L (3.5-5.1); Sodium Level 139 mmol/L (136-145)
[2024-11-21 10:16] LABS: Magnesium 1.9 mg/dL (1.6-2.6)
[2024-11-21 11:46] LABS: Hemoglobin A1c 6.2 % (3.8-5.6)
--- NOTE | 2024-11-21 11:52 | PAT.ANE_ITS ---
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 When Was Last Pacemaker Check QUESTION #4 FULL TEXT: You/Your Family Experience fever (hyperthermia) with Anesthesia Last Oral Intake Last Oral intake: Last Oral Intake NPO since Meds taken in AM with sips of water? Meds patient instructed to take am of surgery PONV PONV - senior android developer: PONV - senior android developer Female No 11/20/24 11:22 HX of Motion Sickness No 11/20/24 11:22 HX of N/V After Surgery No 11/20/24 11:22 Non-Smoker Yes 11/20/24 11:22 Duration of Surgery greater Yes 11/20/24 11:22 than 60 minutes Number of Risk Factors 2 11/20/24 11:22 PONV Score Moderate Risk 11/20/24 11:22 Height & Weight Height & Weight: Anesthesia: Height & Weight Height 5 ft 7 in 05/08/24 11:06 Respiratory Assessment Respiratory Assessment - senior android developer: Respiratory Tract Infection Hx - senior android developer Hx Respiratory Tract Infection No 11/20/24 11:22 STOP Sleep Apnea STOP Sleep Apnea - senior android developer: STOP Sleep Apnea - senior android developer Hx Hypertension Yes: CONTROLLED WITH MED 11/20/24 11:22 Hx Sleep Apnea No 11/20/24 11:22 CPAP BIPAP Do you snore loudly (louder Yes 11/20/24 11:22 than talking or can be heard Do you often feel tired/ Yes 11/20/24 11:22 fatigued/ sleepy during daytime? Has anyone observed you stop No 11/20/24 11:22 breathing during sleep? STOP Results Positive 11/20/24 11:22 QUESTION #5 FULL TEXT : Do you snore loudly (louder than talking or can be heard through closed doors)? 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 Specify any problems Hx of Preganancy in last 3 N/A 11/20/24 11:22 Months Nurse Filling Out Transfusion DSCHRIBER 11/20/24 11:22 & Questions: Date: 11/20/24 11/20/24 11:22 Time: 11:24 11/20/24 11:22 Patient unable to answer at this time (ie. confused, unrespo /Reproduction History /Reproductive History - senior android developer: /Reproductive Hx- senior android developer Hx Now No 11/20/24 11:22 Gestational Age (in weeks): EDC: Hx Hx Para Hx Section SAB No 11/20/24 11:22 PFS Medical History (Updated 11/20/24 @ 11:29 by Addie Andrade) Loss of hearing Prostate disease Wears glasses Diabetes Arthritis High cholesterol Syncope Dietary restriction Non-smoker Shortness of breath on exertion Leg cramps History of stress test Hypertension History of rheumatic fever History of atrial fibrillation A-fib Heart murmur Type 2 diabetes mellitus Seasonal allergies Hyperlipemia Hypertension Home Medications ?Medication ?Instructions ?Recorded ?Last Taken ?Type aspirin 81 mg tablet,delayed 81 mg PO DAILY 04/17/19 Unknown History release azelastine 137 mcg (0.1 %) nasal 2 spray intranasal Q12H 05/08/24 Unknown History spray fluticasone propionate 50 1 spray intranasal BID 05/08/24 Unknown History mcg/actuation nasal spray,suspension lisinopril 20 1 tab PO QDAY #90 tabs 05/21/24 Unknown Rx mg-hydrochlorothiazide 25 mg tablet cetirizine 10 mg tablet 10 mg PO QPM 08/19/24 Unknown History metformin 500 mg tablet 500 mg PO DAILY #90 TABLETS 09/25/24 Unknown Rx allopurinol 300 mg tablet 300 mg PO DAILY #90 tabs 11/19/24 Unknown Rx simvastatin 40 mg tablet 40 mg PO QHS #90 tabs 11/19/24 Unknown Rx Allergy/AdvReac Type Severity Reaction Status Date / Time No Known Allergies Allergy Verified 11/20/24 11:16 Family History Mother Asthma CVA (cerebral vascular accident) Father Parkinsons Surgical History (Updated 11/20/24 @ 11:29 by Addie Andrade) History of hernia repair History of carpal tunnel release Social History Smoking Status: Never smoker alcohol intake: never substance use type: does not use what type of physical activity do you participate in: none Audit: Pertinent Findings Pertinent Findings Stress test pertinent findings: 03/13/2024 EF 60% normal perfusion at moderate workload Recommendation Anesthesia Recommendation Anesthesia recommendation: OPTIMIZED for anesthesia
[2024-11-22 07:08] LABS: Fructosamine 214 umol/L (0-285)
[2024-12-04] VITALS (10 sets, daily range): BP systolic 92–124; BP diastolic 54–79; PULSE 67–77; RESP 16; TEMP 35.9–36.4; O2SAT 96–99; BMI 27.0
--- NOTE | 2024-12-04 | SHO_PTH ---
PATIENT: HIRAL VAN [facility] [facility] U[facility][id number] AGE/SX: 74/M ROOM: RE12/04/[address]: Dr. Augustine Barrientos MD : 1950 BED: DIS: 12/04/2024 SPEC #: [id number] RECD: 12/04/24 13:04 STATUS: ARYA RERosa #: [id number] GARY: 12/04/24 00:[address]: Augustine Barrientos DEPT: SURGICAL PATHOLOGY RECD BY: Amadeo Jimenez ENTERED: 12/04/24 13:05 SP TYPE: HUMERUS OTHR DR: Dr. Rambo Warren, DO Tissues: Humerus, NOS Procedures: Decalcification bone/plaque Surgery Specimen Level IV HEADER OPERATION: Right reverse total shoulder replacement PRE-OP DIAGNOSIS: Rotator cuff arthroplasty of right shoulder TISSUE SUBMITTED: Right humeral head MICROSCOPIC DIAGNOSIS Bone and tissue right shoulder, total shoulder replacement/resection: Humeral head with degenerative osteoarthritic changes. BELKYS. 12/10/2024 MICROSCOPIC DESCRIPTION Slides are reviewed. GROSS DESCRIPTION Received is one container labeled with the patient's name and designated bone and soft tissue. The specimen consists of a humeral head measuring 4.5 x 4.5 x 0.8 cm. The articular surface shows areas of erosion, eburnation and osteophyte formation. No soft tissue is identified. [place] sections are submitted in one cassette after decalcification. / SJ: 12/04/2024 TC:5 CPT: 92069, 64849
[2024-12-04] MEDS: 0.9% Normal Saline (1000mL) 1,000 ML 15 ML IV (06:35)
[2024-12-04] MEDS: Magnesium 2 GM for ERAS IV (07:09)
[2024-12-04] MEDS: Gabapentin 600 MG Tablet PO (07:23)
[2024-12-04] MEDS: Scopolamine 1mg/72hr Patch 1 PATCH TD (07:24)
[2024-12-04] MEDS: Acetaminophen 500 MG Tablet 1000 MG PO (07:24)
[2024-12-04] MEDS: Vancomycin HCl 1,250 MG in 0.9% Normal Saline (250mL Bag) 250 ML 167 MG IV (07:24)
--- NOTE | 2024-12-04 07:24 | PRE.ANES_ITS ---
ASA Classification* ASA Classification ASA Classification: 3 Assessment & Plan Anesthesia* Anesthesia Assessment Anesthesia Assessment: Discussed sedation and/or anesthesia options, risks, benefits, and alternatives with patient/parents/legal guardian/POA. Questions invited. The patient/parents/legal guardian/POA seems to understand and agrees to proceed with anesthesia plan. Reviewed the physical assessment, medical history, allergy history and patient home medications list prior to surgery/procedure/anesthetic and documented any changes. Performed airway and anesthesia risk assessments. Anesthesia Type Anesthesia Type: General and Block History Source History Obtained from:: Patient and Chart Anesthesia Focused Assessment* Temperature: 97.6 F Pulse Rate: 77 Blood Pressure: 124/76 Respiratory Rate: 16 Pulse Ox: 97 Oxygen Delivery Method: Room Air Airway Assessment Mouth opens: >3 cm Mallampati Score: II Teeth Condition: Caps/Crowns Neck Range of motion (ROM): Full ROM Focused Labs Anesthesia Preop lab: CBC WBC 8.2 K/mm3 (4.4-11.0) 11/21/24 08:54 11/21/24 RBC 5.25 M/mm3 (4.6-6.2) 11/21/24 08:54 11/21/24 Hgb 14.8 g/dL (13.0-16.5) 11/21/24 08:54 11/21/24 Hct 46.9 % (40-54) 11/21/24 08:54 11/21/24 Plt Count 222 K/mm3 (150-450) 11/21/24 08:54 11/21/24 CHEMISTRY Potassium 4.1 mmol/L (3.5-5.1) 11/21/24 08:54 11/21/24 Sodium 139 mmol/L (136-145) 11/21/24 08:54 11/21/24 Magnesium 1.9 mg/dL (1.6-2.6) 11/21/24 08:52 11/21/24 BUN 21 mg/dL (7-18) H 11/21/24 08:54 11/21/24 Creatinine 0.90 mg/dL (0.70-1.30) 11/21/24 08:54 11/21/24 Glucose 139 mg/dL (74-106) H 11/21/24 08:54 11/21/24 POC Glucose 136 mg/dL (74-106) H 12/04/24 10:58 12/04/24 COAG PT 13.7 SECONDS (11.7-14.9) 11/21/24 08:54 Pre-Assessment Diagnosis/Proposed Procedure Planned Operative Procedure(s): RIGHT SHOULDER REVERSE TOTAL SHOULDER ARTHROPLAS TY Anesthesia History 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 When Was Last Pacemaker Check QUESTION #4 FULL TEXT: You/Your Family Experience fever (hyperthermia) with Anesthesia Last Oral Intake Last Oral intake: Last Oral Intake NPO since 22:00 12/04/24 07:13 Meds taken in AM with sips of No 12/04/24 07:13 water? Meds patient instructed to take am of surgery PONV PONV - feed and farm management adviser: PONV - feed and farm management adviser Female No 11/20/24 11:22 HX of Motion Sickness No 11/20/24 11:22 HX of N/V After Surgery No 11/20/24 11:22 Non-Smoker Yes 11/20/24 11:22 Duration of Surgery greater Yes 11/20/24 11:22 than 60 minutes Number of Risk Factors 2 11/20/24 11:22 PONV Score Moderate Risk 11/20/24 11:22 Height & Weight Height & Weight: Anesthesia: Height & Weight Height 5 ft 6 in 12/04/24 07:13 Weight: 76 kg 12/04/24 07:13 Body Mass Index (BMI) 27.0 12/04/24 07:13 Respiratory Assessment Respiratory Assessment - feed and farm management adviser: Respiratory Tract Infection Hx - feed and farm management adviser Hx Respiratory Tract Infection No 11/20/24 11:22 STOP Sleep Apnea STOP Sleep Apnea - feed and farm management adviser: STOP Sleep Apnea - feed and farm management adviser Hx Hypertension Yes: CONTROLLED WITH MED 11/20/24 11:22 Hx Sleep Apnea No 11/20/24 11:22 CPAP BIPAP Do you snore loudly (louder Yes 11/20/24 11:22 than talking or can be heard Do you often feel tired/ Yes 11/20/24 11:22 fatigued/ sleepy during daytime? Has anyone observed you stop No 11/20/24 11:22 breathing during sleep? STOP Results Positive 11/20/24 11:22 QUESTION #5 FULL TEXT : Do you snore loudly (louder than talking or can be heard through closed doors)? 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 Specify any problems Hx of Preganancy in last 3 N/A 11/20/24 11:22 Months Nurse Filling Out Transfusion DSCHRIBER 11/20/24 11:22 & Questions: Date: 11/20/24 11/20/24 11:22 Time: 11:24 11/20/24 11:22 Patient unable to answer at this time (ie. confused, unrespo /Reproduction History /Reproductive History - feed and farm management adviser: /Reproductive Hx- feed and farm management adviser Hx Now No 11/20/24 11:22 Gestational Age (in weeks): EDC: Hx Hx Para Hx Section SAB No 11/20/24 11:22 Active Medications Active Medications: Current Medications Generic Name Dose Route Start Last Admin Trade Name Freq PRN Reason Stop Dose Admin Acetaminophen 1,000 mg 12/04/24 07:30 Acetaminophen 500 Mg Tablet PO 12/04/24 07:31 X1 ONE Dexamethasone Sodium Phosphate 10 mg 12/04/24 07:30 Dexamethasone 10 Mg/Ml Vial IV 12/04/24 07:31 X1 ONE Gabapentin 600 mg 12/04/24 07:30 Gabapentin 600 Mg Tablet PO 12/04/24 07:31 X1 ONE Cefazolin Sodium 2 gm/ N/A 20 mls @ 400 mls/hr 12/04/24 07:30 IV 12/04/24 07:32 PREOP ONE Tranexamic Acid 1,000 mg/ 110 mls @ 660 mls/hr 12/04/24 07:30 Sodium Chloride IV 12/04/24 07:39 X1 ONE Tranexamic Acid 1,000 mg/ 110 mls @ 660 mls/hr 12/04/24 07:30 Sodium Chloride IV 12/04/24 07:39 X1 ONE Lactated Ringer's 1,000 mls @ 125 mls/hr 12/04/24 07:30 IV 12/04/24 15:29 .Q8H GREGORIA Vancomycin HCl 1,250 mg/ 275 mls @ 167 mls/hr 12/04/24 07:30 Sodium Chloride IV 12/04/24 09:08 PREOP ONE Magnesium Sulfate 2 gm/ 104 mls @ 208 mls/hr 12/04/24 07:30 Dextrose IV 12/04/24 07:59 X1 ONE Sodium Chloride 1,000 mls @ 15 mls/hr 12/04/24 06:35 IV 12/09/24 19:54 .Q48H GREGORIA Protocol Insulin Human Lispro 1 - 6 unit 12/04/24 07:30 Insulin Lispro 100 Unit/Ml Insuln.Pen SC 12/04/24 18:00 Q4H PRN PRN BG>/= 180, SEE PROTOCOL Protocol Scopolamine HBr 1 patch 12/04/24 07:30 Scopolamine 1mg/72hr Patch TD 12/04/24 07:31 X1 ONE PFSH Medical History Loss of hearing Prostate disease Wears glasses Diabetes Arthritis High cholesterol Syncope Dietary restriction Non-smoker Shortness of breath on exertion Leg cramps History of stress test Hypertension History of rheumatic fever History of atrial fibrillation A-fib Heart murmur Type 2 diabetes mellitus Seasonal allergies Hyperlipemia Hypertension Home Medications ?Medication ?Instructions ?Recorded ?Last Taken ?Type aspirin 81 mg tablet,delayed 81 mg PO DAILY 04/17/19 0 12/03/24 History release azelastine 137 mcg (0.1 %) nasal 2 spray intranasal Q1 2H 05/08/24 12/03/24 History spray fluticasone propionate 50 1 spray intranasal BID 05/0812/03/24 History mcg/actuation nasal spray,suspension lisinopril 20 1 tab PO QDAY #90 tabs 05/2112/03/24 Rx mg-hydrochlorothiazide 25 mg tablet cetirizine 10 mg tablet 10 mg PO QPM 06/24/24 History metformin 500 mg tablet 500 mg PO DAILY #90 TABLETS 09/25/24 12/03/24 Rx allopurinol 300 mg tablet 300 mg PO DAILY #90 tabs 12/03/24 Rx simvastatin 40 mg tablet 40 mg PO QHS #90 tabs 12/03/24 Rx cephalexin 500 mg capsule 500 mg PO Q8H post op 3 days #9 12/04/24 Unknown Rx caps oxycodone-acetaminophen 5 mg-325 1 tab PO Q4H PRN pain 5 days #20 12/04/24 Unkn own Rx mg tablet (Endocet) tabs Allergy/AdvReac Type Severity Reaction Status Date / Time No Known Allergies Allergy Verified 12/04/24 06:58 Family History Mother Asthma CVA (cerebral vascular accident) Father Parkinsons Surgical History (Updated 11/20/24 @ 11:29 by Addie Andrade) History of hernia repair History of carpal tunnel release Social History Smoking Status: Never smoker alcohol intake: never substance use type: does not use what type of physical activity do you participate in: none Review of Systems (Anesthesia) ROS Narrative System reviewed and no additional complaints, except as documented.
--- NOTE | 2024-12-04 07:39 | PCM.PRE.AN2 ---
ASA Classification* ASA Classification ASA Classification: 3 Assessment & Plan Anesthesia* Anesthesia Assessment Anesthesia Assessment: Discussed sedation and/or anesthesia options, risks, benefits, and alternatives with patient/parents/legal guardian/POA. Questions invited. The patient/parents/legal guardian/POA seems to understand and agrees to proceed with anesthesia plan. Reviewed the physical assessment, medical history, allergy history and patient home medications list prior to surgery/procedure/anesthetic and documented any changes. Performed airway and anesthesia risk assessments. Anesthesia Type Anesthesia Type: General and Block History Source History Obtained from:: Patient and Chart Anesthesia Focused Assessment* Temperature: 97.6 F Pulse Rate: 77 Blood Pressure: 124/76 Respiratory Rate: 16 Pulse Ox: 97 Oxygen Delivery Method: Room Air Airway Assessment Mouth opens: >3 cm Mallampati Score: II Teeth Condition: Intact Neck Range of motion (ROM): Full ROM Focused Labs Anesthesia Preop lab: CBC WBC 8.2 K/mm3 (4.4-11.0) 11/21/24 08:54 RBC 5.25 M/mm3 (4.6-6.2) 11/21/24 08:54 Hgb 14.8 g/dL (13.0-16.5) 11/21/24 08:54 Hct 46.9 % (40-54) 11/21/24 08:54 Plt Count 222 K/mm3 (150-450) 11/21/24 08:54 CHEMISTRY Potassium 4.1 mmol/L (3.5-5.1) 11/21/24 08:54 Sodium 139 mmol/L (136-145) 11/21/24 08:54 Magnesium 1.9 mg/dL (1.6-2.6) 11/21/24 08:52 BUN 21 mg/dL (7-18) H 11/21/24 08:54 Creatinine 0.90 mg/dL (0.70-1.30) 11/21/24 08:54 Glucose 139 mg/dL (74-106) H 11/21/24 08:54 POC Glucose 94 mg/dL (74-106) 12/21/22 14:43 COAG PT 13.7 SECONDS (11.7-14.9) 11/21/24 08:54 Pre-Assessment Diagnosis/Proposed Procedure Planned Operative Procedure(s): RIGHT SHOULDER REVERSE TOTAL SHOULDER ARTHROPLASTY Anesthesia History Anesthesia History - supervisor assembly: Anesthesia History - supervisor assembly Hx Hospitalization No 11/20/24 11:22 Any Problems With Anesthesia No 11/20/24 11:22 Cholinesterase deficiency No 11/20/24 11:22 You/Your Family Experience No 11/20/24 11:22 fever (hyperthermia) with Relationship Recent Exposure to Contagious No 12/04/24 07:13 Disease Does patient have nerve No 11/20/24 11:22 stimulator Patient instructed to have device shut off --Does patient have Pacemaker No 12/04/24 07:13 or ICD? When Was Last Pacemaker Check QUESTION #4 FULL TEXT: You/Your Family Experience fever (hyperthermia) with Anesthesia Last Oral Intake Last Oral intake: Last Oral Intake NPO since 22:00 12/04/24 07:13 Meds taken in AM with sips of No 12/04/24 07:13 water? Meds patient instructed to take am of surgery PONV PONV - supervisor assembly: PONV - supervisor assembly Female No 11/20/24 11:22 HX of Motion Sickness No 11/20/24 11:22 HX of N/V After Surgery No 11/20/24 11:22 Non-Smoker Yes 11/20/24 11:22 Duration of Surgery greater Yes 11/20/24 11:22 than 60 minutes Number of Risk Factors 2 11/20/24 11:22 PONV Score Moderate Risk 11/20/24 11:22 Height & Weight Height & Weight: Anesthesia: Height & Weight Height 5 ft 6 in 12/04/24 07:13 Weight: 76 kg 12/04/24 07:13 Body Mass Index (BMI) 27.0 12/04/24 07:13 Respiratory Assessment Respiratory Assessment - supervisor assembly: Respiratory Tract Infection Hx - supervisor assembly Hx Respiratory Tract Infection No 11/20/24 11:22 STOP Sleep Apnea STOP Sleep Apnea - supervisor assembly: STOP Sleep Apnea - supervisor assembly Hx Hypertension Yes: CONTROLLED WITH MED 11/20/24 11:22 Hx Sleep Apnea No 11/20/24 11:22 CPAP BIPAP Do you snore loudly (louder Yes 11/20/24 11:22 than talking or can be heard Do you often feel tired/ Yes 11/20/24 11:22 fatigued/ sleepy during daytime? Has anyone observed you stop No 11/20/24 11:22 breathing during sleep? STOP Results Positive 11/20/24 11:22 QUESTION #5 FULL TEXT : Do you snore loudly (louder than talking or can be heard through closed doors)? 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 Specify any problems Hx of Preganancy in last 3 N/A 11/20/24 11:22 Months Nurse Filling Out Transfusion DSCHRIBER 11/20/24 11:22 & Questions: Date: 11/20/24 11/20/24 11:22 Time: 11:24 11/20/24 11:22 Patient unable to answer at this time (ie. confused, unrespo /Reproduction History /Reproductive History - supervisor assembly: /Reproductive Hx- supervisor assembly Hx Now No 11/20/24 11:22 Gestational Age (in weeks): EDC: Hx Hx Para Hx Section SAB No 11/20/24 11:22 Active Medications Active Medications: Current Medications Generic Name Dose Route Start Last Admin Trade Name Freq PRN Reason Stop Dose Admin Lactated Ringer's 1,000 mls @ 125 mls/hr 12/04/24 07:30 IV 12/04/24 15:29 .Q8H GREGORIA Vancomycin HCl 1,250 mg/ 275 mls @ 167 mls/hr 12/04/24 07:30 Sodium Chloride IV 12/04/24 09:08 PREOP ONE Magnesium Sulfate 2 gm/ 104 mls @ 208 mls/hr 12/04/24 07:30 Dextrose IV 12/04/24 07:59 X1 ONE Sodium Chloride 1,000 mls @ 15 mls/hr 12/04/24 06:35 IV 12/09/24 19:54 .Q48H [facility] Protocol Insulin Human Lispro 1 - 6 unit 12/04/24 07:30 Insulin Lispro 100 Unit/Ml Insuln.Pen SC 12/04/24 18:00 Q4H PRN PRN BG>/= 180, SEE PROTOCOL Protocol PFSH Medical History Loss of hearing Prostate disease Wears glasses Diabetes Arthritis High cholesterol Syncope Dietary restriction Non-smoker Shortness of breath on exertion Leg cramps History of stress test Hypertension History of rheumatic fever History of atrial fibrillation A-fib Heart murmur Type 2 diabetes mellitus Seasonal allergies Hyperlipemia Hypertension Home Medications ?Medication ?Instructions ?Recorded ?Last Taken ?Type aspirin 81 mg tablet,delayed 81 mg PO DAILY 04/17/19 12/03/24 History release azelastine 137 mcg (0.1 %) nasal 2 spray intranasal Q12H 05/08/24 12/03/24 History spray fluticasone propionate 50 1 spray intranasal BID 05/08/24 12/03/24 History mcg/actuation nasal spray,suspension lisinopril 20 1 tab PO QDAY #90 tabs 05/21/24 12/03/24 Rx mg-hydrochlorothiazide 25 mg tablet cetirizine 10 mg tablet 10 mg PO QPM 06/24/24 12/03/24 History metformin 500 mg tablet 500 mg PO DAILY #90 TABLETS 09/25/24 12/03/24 Rx allopurinol 300 mg tablet 300 mg PO DAILY #90 tabs 11/19/24 12/03/24 Rx simvastatin 40 mg tablet 40 mg PO QHS #90 tabs 11/19/24 12/03/24 Rx Allergy/AdvReac Type Severity Reaction Status Date / Time No Known Allergies Allergy Verified 12/04/24 06:58 Family History Mother Asthma CVA (cerebral vascular accident) Father Parkinsons Surgical History (Updated 11/20/24 @ 11:29 by Addie Andrade) History of hernia repair History of carpal tunnel release Social History Smoking Status: Never smoker alcohol intake: never substance use type: does not use what type of physical activity do you participate in: none Review of Systems (Anesthesia) ROS Narrative System reviewed and no additional complaints, except as documented. Physical Exam Const Orientation / Consciousness: awake Nutritional Appearance: obese
[2024-12-04 08:13] LABS: Bedside Glucose 125 mg/dL (74-106)
--- NOTE | 2024-12-04 08:43 | PCM.HP.STD ---
HPI - General HPI Narrative HIRAL VAN, is a 74 M who presents for right RTSA. ok to proceed. right shoulder marked, rab, post op discussion and narcotic counselling done. consent updated. plan for block. no further q's or concerns. MR#: [id number] Acct: [id number] Name: HIRAL VAN Rep #: [id number] : 1950 Provider: Dr. Augustine Barrientos MD Age/Sex: 73/M [place] [facility] [place] Status: Signed Intake Vital Signs 05/08/2411:06 Height 5 ft 7 in Intake Visit Reasons: RIGHT SHOULDER Accompanied by: Is patient in pain?: Yes Pain scale (1-10): 1 Allergies No Known Allergies Allergy (Verified 09/23/24 08:03) Medications ?Medication ?Instructions ?Recorded ?Confirmed ?Type aspirin 81 mg tablet,delayed 81 mg PO DAILY 04/17/19 09/23/24 History release azelastine 137 mcg (0.1 %) nasal intranasal 05/08/24 09/23/24 History spray fluticasone propionate 50 spray intranasal 05/08/24 09/23/24 History mcg/actuation nasal spray,suspension allopurinol 300 mg tablet 300 mg PO DAILY #90 tabs 05/21/24 09/23/24 Rx lisinopril 20 1 tab PO QDAY #90 tabs 05/21/24 09/23/24 Rx mg-hydrochlorothiazide 25 mg tablet simvastatin 40 mg tablet 40 mg PO QHS #90 tabs 05/21/24 09/23/24 Rx cetirizine 10 mg tablet 10 mg PO QPM 06/24/24 09/23/24 History metformin 500 mg tablet 500 mg PO DAILY #90 TABLETS 08/13/24 09/23/24 Rx Have you fallen in the past year?: Yes PFSH Medical History Wears glasses Diabetes Arthritis High cholesterol Back pain Syncope Dietary restriction Non-smoker Shortness of breath on exertion Leg cramps History of edema History of stress test Hypertension History of rheumatic fever History of atrial fibrillation A-fib Heart murmur Type 2 diabetes mellitus Seasonal allergies Hyperlipemia Hypertension Surgical History History of hernia repair History of carpal tunnel release Family History Mother Asthma CVA (cerebral vascular accident)Father Parkinsons Social History Smoking Status: Never smoker alcohol intake: never substance use type: does not use what type of physical activity do you participate in: none HPI RIGHT SHOULDER Details: This documentation accurately reflects the service provided and the decisions made by me, Dr. Augustine Barrientos MD 09/23/24 0800. Part of today?s visit was documented by [ ], acting as scribe. HIRAL VAN is a 73 year old M here today for follow-up right shoulder PRP injection for cuff tear arthropathy. The patient did get some relief albeit not perfectly and the pain did return he is interested in a shoulder arthroplasty. Ortho Exam General General: Yes no acute distress Neurologic: Yes alert and Yes oriented x3 Psychologic: Yes reasonable and appropriate Right Shoulder Skin/Wound: Yes CDI, No ecchymosis, No erythema and No swelling Testing: Positive Hawkin's, Neer's, empty can and cross arm; Negative Speed's, TTP Biceps, TTP AC Joint, Drop Arm or scapular winging SHOULDER: normal motor and sens to ax nerve, and MRU and AIN/PIN active fe 120, passive 130, er 15. crepitus, FE and ER strength 4/5 Coding Level of Care Code Off vis,est,level 4 Diagnoses Rotator cuff arthropathy of right shoulder M12.811 Assessment and Plan Assessment and Plan (1) Rotator cuff arthropathy of right shoulder: Status: Chronic Plan: 73-year-old man with right shoulder rotator cuff tear arthropathy. Explained the pros and cons risks and benefits of continued nonoperative management versus reverse total shoulder arthroplasty. Patient is interested in surgery. Explained the possible risks with that infection would necessitate 2 more surgeries after that instability fracture neurovascular injury blood clots and other risks. Patient wished to go ahead signed the consent form for right reverse total shoulder arthroplasty and we will get a preoperative clearance he is a diabetic this can increase the chance of an infection but his hemoglobin A1c is under 7. I ordered the CT scan for blueprint surgical planning and we plan to do this in the new year. He understands no further questions or concerns. Pros and cons risks and benefits were discussed with the patient including but not limited to infection, pain, stiffness, bleeding, damage to surrounding structures, neurovascular injury, recurrence or retear, failure or wear of hardware or fixation, instability, fracture, deep vein thrombosis and pulmonary embolism, anesthetic risks, , patient dissatisfaction, need for further surgery and other risks. Patient understood and wished to proceed with surgery, and signed the informed consent documentation. Orders: Orders Extremity Upper without Contra Today M12.811 - Other specific arthropathies, not elsewhere classified, right shoulder Clinical Quality Measures Falls Risk Screening/Assistive Devices Have you fallen in the past year?: Yes [facility] Medical History Loss of hearing Prostate disease Wears glasses Diabetes Arthritis High cholesterol Syncope Dietary restriction Non-smoker Shortness of breath on exertion Leg cramps History of stress test Hypertension History of rheumatic fever History of atrial fibrillation A-fib Heart murmur Type 2 diabetes mellitus Seasonal allergies Hyperlipemia Hypertension Home Medications ?Medication ?Instructions ?Recorded ?Last Taken ?Type aspirin 81 mg tablet,delayed 81 mg PO DAILY 04/17/19 12/03/24 History release azelastine 137 mcg (0.1 %) nasal 2 spray intranasal Q12H 05/08/24 12/03/24 History spray fluticasone propionate 50 1 spray intranasal BID 05/08/24 12/03/24 History mcg/actuation nasal spray,suspension lisinopril 20 1 tab PO QDAY #90 tabs 05/21/24 12/03/24 Rx mg-hydrochlorothiazide 25 mg tablet cetirizine 10 mg tablet 10 mg PO QPM 06/24/24 12/03/24 History metformin 500 mg tablet 500 mg PO DAILY #90 TABLETS 09/25/24 12/03/24 Rx allopurinol 300 mg tablet 300 mg PO DAILY #90 tabs 11/19/24 12/03/24 Rx simvastatin 40 mg tablet 40 mg PO QHS #90 tabs 11/19/24 12/03/24 Rx Allergy/AdvReac Type Severity Reaction Status Date / Time No Known Allergies Allergy Verified 12/04/24 06:58 Family History Mother Asthma CVA (cerebral vascular accident) Father Parkinsons Surgical History (Updated 11/20/24 @ 11:29 by Addie Andrade) History of hernia repair History of carpal tunnel release Social History Smoking Status: Never smoker alcohol intake: never substance use type: does not use what type of physical activity do you participate in: none Vital Signs Vital Signs Vital Signs: 12/04/24 07:13 12/04/24 07:13 12/04/24 07:43 Temperature 97.6 F L 97.6 F L Temperature Source Temporal Pulse Rate 77 77 Respiratory Rate 16 16 Respiratory Pattern Normal Blood Pressure 124/76 H 124/76 H Blood Pressure Mean 92 Blood Pressure Source Monitor Blood Pressure Position Sitting Blood Pressure Location Right Arm Pulse Ox 97 97 Oxygen Delivery Method Room Air Room Air Weight Weight: 167 lb 8.821 oz Body Mass Index (BMI) 27.0 Results Lab / Micro Data 11/21/24 08:54 11/21/24 08:54 Labs: Laboratory Results - last 24 hr 12/04/24 07:11: POC Glucose 125 H
[2024-12-04] MEDS: Cefazolin 2 GM in Syringe 10 ML IV (08:55)
[2024-12-04] MEDS: dexAMETHasone 10 MG/ML Vial IV (08:55)
[2024-12-04] MEDS: TXA 1000mg in NS100 100ml (IVPB at Incision) 660 MG IV (08:55)
[2024-12-04 09:17] LABS: Bedside Glucose 113 mg/dL (74-106)
--- NOTE | 2024-12-04 10:45 | RAD_ITS ---
PROCEDURE: HUMERUS MIN 2 VIEWS; O.R. FLUORO FOR C-ARM REASON FOR EXAM: Total shoulder arthroplasty TECHNIQUE: Intraoperative fluoroscopy, along with a series 4 fluoroscopic images were obtained. COMPARISON: None. RAD/Humerus min 2 Views IMPRESSION: Intraoperative fluoroscopy was performed, for placement of a reverse right tota l shoulder arthroplasty. For fluoroscopic images were also obtained. Reading Location: [id number]
--- NOTE | 2024-12-04 10:45 | RAD_ITS ---
PROCEDURE: HUMERUS MIN 2 VIEWS; O.R. FLUORO FOR C-ARM REASON FOR EXAM: Total shoulder arthroplasty TECHNIQUE: Intraoperative fluoroscopy, along with a series 4 fluoroscopic images were obtained. COMPARISON: None. RAD/O.R. Fluoro for C-Arm IMPRESSION: Intraoperative fluoroscopy was performed, for placement of a reverse right tota l shoulder arthroplasty. For fluoroscopic images were also obtained. Reading Location: [id number]
[2024-12-04] MEDS: TXA 1000mg in NS100 100ml (IVPB at Closure) 660 MG IV (11:16)
[2024-12-04 11:17] LABS: Bedside Glucose 136 mg/dL (74-106)
[2024-12-04] MEDS: Vancomycin IV 1,000 MG/20 ML Vial 1000 MG OPERA.SITE (11:26)
--- NOTE | 2024-12-04 11:36 | OP.PCM_ITS ---
Problems Associated Problem List Diagnoses (1) Rotator cuff arthropathy of right shoulder: Procedures Musculoskeletal [id number]-29xxx: Other Procedure See Report Operative Report (Standard) Operative Information Date of Procedure: 12/04/24 Pre-Operative Diagnosis: Right shoulder osteoarthritis Post-Operative Diagnosis: Same Surgery/Procedure Performed: Right reverse total shoulder arthroplasty manager program: Yes Smokehouse Operator: miguel Tasks completed by shampoo assistant: Retracting Additional assistant store manager trainee?: No Type of Anesthesia: Block,Regional and General RN Documented Start/Stop Times: Operation Date: 12/04/24 08:30 Case Time Into Pre-Op 12/04/24 06:31 Out of Pre-Op 12/04/24 08:20 Anesthesia Start 12/04/24 08:51 Into Room 12/04/24 08:51 Procedure Start 12/04/24 09:23 Procedure End 12/04/24 11:32 Procedure Start Time: 09:23 Procedure Stop Time: 11:32 Select all DRAINS/GRAFTS/IMPLANTS that apply: Prosthetic device Prosthetic device details: candice aequalis perform reverse / tornier Estimated Blood Loss: 250 Specimen collected: Yes Description of specimen(s) removed: humeral head resection Description of surgery: Patient brought to the operating room theater. Placed supine on the beachchair positioner. 2 g IV Ancef and 1 g IV tranexamic acid administered prior to the start of the procedure (1g txa at end). General anesthesia induced. Patient sat up at a 45 degree angle. Arm positioner used to the patient's right side. Upper extremity prepped and draped in the usual sterile fashion allowing over 3 minutes drying time prior to draping. All bony prominences padded. SCDs on the legs. Preoperative timeout performed to confirm the site patient and the surgery. Began by making a standard deltopectoral incision just lateral to the coracoid process. Carried dissection down through skin and subcutaneous tissue achieved meticulous hemostasis. Developed and retracted and protected the cephalic vein laterally. Identified the conjoined tendon retracted that medially axillary nerve palpated this protected it felt intact. I followed the long head of the biceps through the rotator interval to identify the lesser and greater tuberosity. I removed the long head of the biceps and tenodesed the distal fragment to the superior aspect of the pectoralis major and released a small amount to the upper border pectoralis major tendon. I made a lesser tuberosity osteotomy thin bone wafer. I used #2 FiberWire sutures to control the subscapularis at the tendon bone junction. I then made my humeral cut at 30 degrees of retroversion using extramedullary guide. I sized this to a size 3 stem insert of the pin and then reamed over the pin for a size 3 reamer. Good kingsley. Identified the canal. Inserted the size 3+ broach this achieved good purchase. I then prepared the glenoid. I remove the labrum circumferentially from around the glenoid and slightly released the triceps attachment from inferiorly again being cautious of the axillary nerve, removed anterior capsule. Using preoperative templating the size 25 mm baseplate full wedge 15 degrees at 9 oclock position. Then placed the guidepin, slight superior and anterior direction. I reamed over the guidewire using the central reamer, then I drilled the central screw and then tapped. This measured 35 mm long central screw. I selected the 25 mm size baseplate with a 35 mm long screw. I inserted this in an appropriate depth and version which achieved good purchase in the glenoid. Wedge at 9 oclock. I then drilled the compression screw. This achieved good fixation. I then drilled the other 3 locking screws. This achieved good pur fernando of the baseplate. I then used pulse lavage to clean the baseplate and then impacted a 39 mm glenosphere, good fixation with the screw. I then turned my attention back to the humeral side. I trialed with a #3+ humeral component and a neutral +0 mm polyethylene component. This was good reduction very solid normal tension on the conjoined tendon. No impingement and full range of motion. I removed the trial components. Drilled 2 tunnels medially for the subscapularis LT osteotomy repair, used arthrex fiber bryanna anchors, linked medial row and then crossed the tapes laterally and fixated to subscap stump. I selected the final size components the [employer] Tornier perform reverse humeral 3+ component and impacted this into place, with +0mm polyethylene tray. Reduced and again trial perform and felt to be stable no impingement. I thoroughly irrigated vancomycin powder placed around the implant. Xray taken intraoperatively to confirm proper reduction and placement as well as size of the implants. Thorough irrigation. Subcutaneous tissue closed with 2-0 Vicryl suture suture and skin with 3-0 Monocryl. Skin cleaned with wet dry dressing. Skin cleaned and Steri-Strips applied followed by silver Mepilex dressing and an abduction pillow sling for the upper extremity. Patient woken up from a general anesthetic transferred off the operating table and taken to postanesthetic care unit in stable condition. All sponge needle instrument counts were correct no complications plan for the patient likely admitted to observation and hopefully discharge home in the next 1 to 2 days w ithout proper pain control. cpt 51607 and [id number]? Surgical Findings: shoulder OA Complications Complications: No Admit VTE Documentation VTE Present on Admission: No VTE Mechan Device Prophylaxis: SCD's VTE Pharm Prophylaxis ordered?: No Reason prophylaxis not ordered: Treatment Not Indicated
--- NOTE | 2024-12-04 11:45 | PCM.POST.ANE ---
Anesthesia: Postop Eval I Current Vital Signs Temperature: 97.1 F Pulse Rate: 71 Blood Pressure: 107/54 Respiratory Rate: 16 Pulse Ox: 99 Assessment Airway patent: Yes Spontaneous unlabored respirations: Yes nausea: No Vomiting: No Anesthesia Complication: No Fluid Hydration Crystalloid volume administer (ml): 1,400 Total IV fluid infused: 1,400 Progress Note Anesthesia document: Postop Eval 1 completed: Yes
--- NOTE | 2024-12-04 11:45 | EX.PCM.DISCH ---
Discharge Instructions Diet Discharge Diet: No restrictions Activity Discharge Activity: Return to Normal Activity Ice area for (Minutes): 10 Weight Bearing Status: No weight bearing Lifting Restrictions: pendulums only 4x/day Dressing / Incision Call your doctor if your incision/area has: Continuous Slow Oozing, Sudden Increased Bleeding, Increased Pain/ Swelling, Increased Redness, Foul Smelling Discharge and Swelling at the incision site Call your doctor if you observe: Fever of 101 or Higher, Coldness, Increased Pain and Numbness or Tingling Change Dressing in: leave in place till F/U Cleanse incision/area with: Do not get Incision Wet Follow Up Care Please Follow Up With: Augustine Barrientos MD When: within 2 weeks Test Results: Test results from this visit will be discussed in further detail at your follow-up appointment, if applicable. Discharge Plan Admission Attending Provider: Augustine Barrientos Primary Care Provider: Rambo Warren Instructions Print Language: Macedonian Discharge Orders/Prescriptions Prescriptions: New oxycodone-acetaminophen [Endocet] 5-325 mg tablet 1 tab PO Q4H MDD 6 PRN (Reason: pain) 5 Days Qty: 20 0RF No Action aspirin 81 mg tablet,delayed release (DR/EC) 81 mg PO DAILY azelastine 137 mcg (0.1 %) spray,non-aerosol 2 spray intranasal Q12H Patient Comments: [NO ORIGINAL SIG] fluticasone propionate 50 mcg/actuation spray,suspension 1 spray intranasal BID cetirizine 10 mg tablet 10 mg PO QPM lisinopril-hydrochlorothiazide 20-25 mg tablet 1 tab PO QDAY Qty: 90 3RF metformin 500 mg tablet 500 mg PO DAILY Qty: 90 1RF allopurinol 300 mg tablet 300 mg PO DAILY Qty: 90 1RF simvastatin 40 mg tablet 40 mg PO QHS Qty: 90 1RF Referrals / Follow Up: Rambo Warren DO [Primary Care Provider] - Augustine Barrientos MD [Med Staff - Active Staff] - Disposition Disposition (needs filled in before D/C Order can be placed): Home, Self Care
--- NOTE | 2024-12-04 13:26 | POSTOPAN2_ITS ---
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 Spontaneous unlabored Yes 12/04/24 11:45 REGULATORY [email or web address].[email or web address] respirations Mental status nausea No 12/04/24 11:45 REGULATORY [email or web address].[email or web address] Vomiting No 12/04/24 11:45 REGULATORY [email or web address].[email or web address] Anesthesia Postop Eval I: Fluid Summary Crystalloid volume administer 1,400 12/04/24 11:45 REGULATORY [email or web address].[email or web address] (ml) Colloids volume administered ( ml) Blood Product volume administered (ml) Total IV fluid infused 1,400 12/04/24 11:45 REGULATORY [email or web address].[email or web address] Anesthesia Postop Eval I: Summary Notes Anesthesia Complication No 12/04/24 11:45 REGULATORY [email or web address].[email or web address] Anesthesia Complication Comment: Post-operative progress note Anesthesia: Postop Eval II Evaluation Mental status: Awake Pain Level: 0 nausea: No Vomiting: No Complications Anesthesia Complication: No
--- NOTE | 2024-12-04 13:26 | PCM.POSTANE2 ---
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 Spontaneous unlabored Yes 12/04/24 11:45 RADIOTELEPHONE OPERATOR.[email or web address] respirations Mental status nausea No 12/04/24 11:45 RADIOTELEPHONE OPERATOR.[email or web address] Vomiting No 12/04/24 11:45 RADIOTELEPHONE OPERATOR.[email or web address] Anesthesia Postop Eval I: Fluid Summary Crystalloid volume administer 1,400 12/04/24 11:45 RADIOTELEPHONE [email or web address].[email or web address] (ml) Colloids volume administered ( ml) Blood Product volume administered (ml) Total IV fluid infused 1,400 12/04/24 11:45 RADIOTELEPHONE OPERATOR.[email or web address] Anesthesia Postop Eval I: Summary Notes Anesthesia Complication No 12/04/24 11:45 RADIOTELEPHONE OPERATOR.[email or web address] Anesthesia Complication Comment: Post-operative progress note Anesthesia: Postop Eval II Evaluation Mental status: Awake Pain Level: 0 nausea: No Vomiting: No Complications Anesthesia Complication: No
[2024-12-05 07:22] VITALS: BP 124/76; PULSE 77; RESP 16; TEMP 36.4; O2SAT 97
== END 2024-12-04 13:47 | disposition home or self-care (01) ==
LOC: SDC 06:25 → AC 06:25
PROVIDERS: Anesthesiology; PCP Family Medicine; Referring Provider Orthopaedic Surgery Sports Medicine; Visit Provider Orthopaedic Surgery Sports Medicine
PROC: (CPT 23472; principal; 2024-12-04 08:00)
DX: M12.811 Other specific arthropathies, not elsewhere classified, right shoulder (principal); I48.91 Unspecified atrial fibrillation; E11.9 Type 2 diabetes mellitus without complications; I10 Essential (primary) hypertension; E78.00 Pure hypercholesterolemia, unspecified; Z79.82 Long term (current) use of aspirin; Z79.84 Long term (current) use of oral hypoglycemic drugs; Z79.899 Other long term (current) drug therapy
CPT/HCPCS: 23472; 01638; 64415; 36415; 73060; 76000; 80048; 82962; 82985; 83036; 83735; 85025; 85610; 85730; 86850; 86900; 86901; 87077; 87081; 88305; 88311; 93005; C1713; C1776; J2405

== ENCOUNTER 2025-02-07 09:00 | Outpatient (RCR) | payer MEDICARE, SELFPAY ==
--- NOTE | 2024-12-23 11:10 | HP.PTEVAL_ITS ---
Patient's Visit Information Visit Information Visit Information: HIRAL VAN is a 74 year old M referred to Physical Therapy by Dr. Augustine Barrientos MD with a diagnosis of R rev TSA 12/04/24. Date of Evaluation: 12/23/24 Physical Therapist: Albert Villareal, PT, ATC Visit Plan Frequency: 2x /Week Duration: 4-6 Weeks Plan: R shoulder PROM and AROM x 4 weeks, then progress to strengthening at that time. Subjective Subjective: DOS: 12/04/24. Pt had a R reverse TSA performed at that time. Pt reports he feels pretty good at this time. Pt is R hand dominant. Pt notes he had a 5 year Hx of R shoulder pain prior to have this surgery. 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 Pt notes sleep difficulty at this time secondary to pain. 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 Pt reports he was in a sling for the past 2 weeks, but was taken out of his sling today. Pt reports his only limitation at this time is to hold off on any activity that causes him pain. 1/10 pain while sitting here at rest, 4/10 pain at worst. Pain R shoulder: Pain Intensity (Out of 10): 1 Pain Intensity Range: 4 Objective Objective: Neuro: B UE sensation is WNL to light touch. B bicipital reflex= 1/3 Observation: Incision is mostly healed. No obvious signs of infection. AROM: L shoulder flex= 150, abd= 155, ER= 60, IR= WNL; R shoulder flex= 65, abd= 55, ER= 20, IR= NT MMT: L shoulder flex= 15, abd= 27, ER= 17, IR= 18 #F; R shoulder not tested today Balance/Special Test Scores Quick DASH Score: 54.5450 Goals Goal 1:: Decrease R shoulder pain x 50% to aid with sleep Goal Time Frame: 4-6 Weeks Goal 2:: Increase R shoulder flex and abd AROM x 40 degrees to aid with IADL's Goal Time Frame: 4-6 Weeks Goal 3:: Increase R shoulder strength to 90% of L shoulder strength to aid with work duties Goal Time Frame: 4-6 Weeks Goal 4:: I with HEP Goal Time Frame: 4-6 Weeks Rehabilitation Potential Physical Therapy Diagnosis: Pt has R shoulder pain, weakness, and limited ROM secondary to R TSA Rehabilitation Potential: Good Anticipated Interventions Patient/Client Instruction: Educate patient on: Condition and Plan of Care For the Purpose of:: To improve self management Therapeutic Exercise to Include: Strength training, Flexibilty training, Passive ROM, Active ROM and Scapular Strength/Stabilization For the Purpose of:: To decrease pain, To increase ROM and To improve muscle performance and motor function Cryotherapy (ice pack, ice massage): Yes For the Purpose of:: To decrease pain Text: Thank you for the opportunity to evaluate your patient. For Medicare and Medicare HMO plans, please review the plan of care and approve it. It will need to be FAXED BACK to us at [phone] for Medicare purposes. For Medicare only, by signing this I certify the plan of care. Please let me know if there are questions or concerns regarding this plan of care. Physician Signature: Date:
--- NOTE | 2025-01-10 10:10 | HP.PTREVAL_ITS ---
Re-Evaluation Intro: Dr. Augustine Barrientos MD, It has been my pleasure to treat HIRAL VAN over the last 7 visits for R rev TSA 12/04/24. Please see the progress note below for an update on the physical therapy plan of care! Subjective Subjective: I am getting better overall Objective Objective/Function: R shoulder pain ranges from 1-6/10 R shoulder AROM: flex= 120, abd= 90, ER= 10, IR= still moderately limited R shoulder MMT: flex= 4, abd= 10, ER= 11, IR= 8 #F Pt is showing excellent progress at this time Plan Plan Plan: 01/10/25- Cont with R shoulder PROM and AROM, progress to strengthening on 01/20/25 after doctor visit. Balance/Gait/Functional tests Balance/Special Test Scores Quick DASH Score: 43.1800 Goals Goals Goal 1:: Decrease R shoulder pain x 50% to aid with sleep Goal Time Frame: 4-6 Weeks Goal Progress: Progressing Goal 2:: Increase R shoulder flex and abd AROM x 40 degrees to aid with IADL's Goal Time Frame: 4-6 Weeks Goal Progress: Progressing Goal 3:: Increase R shoulder strength to 90% of L shoulder strength to aid with work duties Goal Time Frame: 4-6 Weeks Goal Progress: Progressing Goal 4:: I with HEP Goal Time Frame: 4-6 Weeks Goal Progress: Progressing Anticipated Interventions Anticipated Interventions Patient/Client Instruction: Educate patient on: Condition and Plan of Care For the Purpose of:: To improve self management Therapeutic Exercise to Include: Strength training, Flexibilty training, Passive ROM, Active ROM and Scapular Strength/Stabilization For the Purpose of:: To decrease pain, To increase ROM and To improve muscle per formance and motor function Cryotherapy (ice pack, ice massage): Yes For the Purpose of:: To decrease pain Re-Evaluation Ending Re-evaluation ending: Please do not hesitate to contact me at [phone] by phone or if you have questions or concerns regarding this new plan of care! Sincerely, Albert Villareal, PT, ATC
--- NOTE | 2025-02-07 09:56 | HP.PTDCS(3) ---
Discharge Summary D/C Summary: It has been my pleasure to treat HIRAL VAN referred by Dr. Augustine Barrientos MD, with the diagnosis of for a total of visit(s). Discharge Date: Please see the following information for a summary of their discharge status. D/C Information d/c sentence: If there are questions or concerns regarding this patient's physical therapy, please feel free to call me at [phone]. Thank you for the referral of this patient. Sincerely, Albert Villareal, PT, ATC
== END 2025-02-07 10:11 | disposition home or self-care (01) ==
LOC: PT 09:00
PROVIDERS: PCP Family Medicine; Referring Provider Orthopaedic Surgery Sports Medicine; Visit Provider Orthopaedic Surgery Sports Medicine
DX: M12.811 Other specific arthropathies, not elsewhere classified, right shoulder (principal)
CPT/HCPCS: 97110; 97140; 97161; 97530

== ENCOUNTER → 2025-02-07 | Outpatient (CLI) | payer MEDICARE, SELFPAY ==
[2025-02-07 11:26] LABS: PSA,Total- Diagnostic 9.05 ng/mL (0.00-4.00)
== END | disposition home or self-care (01) ==
LOC: LAB 10:04
PROVIDERS: PCP Family Medicine; Referring Provider Nurse Practitioner; Visit Provider Nurse Practitioner
DX: C61 Malignant neoplasm of prostate (principal)
CPT/HCPCS: 36415; 84153

== ENCOUNTER → 2025-06-04 | Outpatient (CLI) | payer MEDICARE, SELFPAY ==
--- NOTE | 2025-06-04 12:55 | ECHOD_ITS ---
Reason For Study Reason For Study: MURMUR Procedure This was a 2D Doppler, Color Flow transthoracic echocardiogram. Exam performed in department. Left Ventricle Normal LV size. Moderate concentric left ventricular hypertrophy. The left ventricular ejection fraction is 65 %. Stage 1 diastolic dysfunction. No regional wall motion abnormalities noted. Right Ventricle Normal RV size. Normal systolic function. Mitral Valve Mild (1+) eccentric mitral valve insufficiency. Tricuspid Valve Normal tricuspid valve. Mild (1+) tricuspid valve insufficiency. Pulmonary artery systolic pressure is 37 mmHg. Aortic Valve Trisinus/trileaflet aortic valve. Moderate focal aortic valve calcification. Peak aortic valve gradient 44 mmHg. Mean aortic valve gradient 24 mmHg. Mild to moderate aortic stenosis. Pulmonic Valve Mild focal pulmonic valve thickening. Great Vessels Normal aortic root. The pulmonary artery is normal size. Normal inferior vena cava. Pericardium/Pleural No pericardial effusion. MMode/2D Measurements & Calculations LVIDd: 3.9 cm IVSd: 1.3 cm LVOT diam: 2.0 cm LVIDs: 2.8 cm LVPWd: 1.3 cm LVOT area: 3.1 cm2 RVDd: 3.7 cm FS: 30.2 % Ao root diam: 3.4 cm LAV(MOD-bp): 53.4 ml LVAd ap4: 26.2 cm2 LAV(MOD-bp) Indexed: 29.0 ml/m2 LVLd ap4: 8.3 cm LAV(MOD-sp2): 48.9 ml EDV(MOD-sp4): 71.7 ml LAV(MOD-sp4): 53.4 ml EDV(sp4-el): 70.0 ml LVAs ap4: 14.3 cm2 LVLs ap4: 7.1 cm ESV(MOD-sp4): 28.2 ml ESV(sp4-el): 24.6 ml EF(MOD-sp4): 60.7 % EF(sp4-el): 64.9 % SV(MOD-sp4): 43.6 ml SV(sp4-el): 45.4 ml LA A4 area: 19.5 cm2 SI(MOD-sp4): 23.6 ml/m2 LA dimension(2D): 3.8 cm RA A4 area: 13.2 cm2 TAPSE: 2.3 cm Time Measurements MV dec time: 0.32 sec Doppler Measurements & Calculations MV E max fermín: 65.8 cm/sec Lat Peak E' Fermín: 6.3 cm/sec Med Peak E' Fermín: 7.3 cm/sec MV A max fermín: 103.3 cm/sec E/E' lat: 10.5 E/E' med: 9.1 MV E/A: 0.64 Ao V2 max: 334.2 cm/sec LV V1 max: 129.3 cm/sec SV(LVOT): 76.3 ml Ao max P.7 mmHg LV V1 max P.7 mmHg Ao V2 mean: 233.3 cm/sec LV V1 mean P.4 mmHg Ao mean P.3 mmHg LV V1 mean: 86.2 cm/sec Ao V2 VTI: 57.7 cm LV V1 VTI: 24.7 cm AV (velocity ratio): 0.43 JAYANT(I,D): 1.3 cm2 JAYANT(V,D): 1.2 cm2 PA V2 max: 121.6 cm/sec TR max fermín: 284.9 cm/sec TR max P.5 mmHg ECHO/Echo Complete Interpretation Summary Normal LV size. Moderate concentric left ventricular hypertrophy. The left ventricular ejection fraction is 65 %. Stage 1 diastolic dysfunction. Moderate focal aortic valve calcification. Pulmonary artery systolic pressure is 37 mmHg. Consider amyloid heart disease Ordering Physician: Rambo Warren Referring Physician: Rambo Warren Performed By: Mariama Feldman RDCS
== END | disposition home or self-care (01) ==
PROVIDERS: PCP Family Medicine; Referring Provider Family Medicine; Visit Provider Family Medicine
DX: R06.09 Other forms of dyspnea (principal); R01.1 Cardiac murmur, unspecified
CPT/HCPCS: 93306

== ENCOUNTER → 2025-08-11 | Outpatient (CLI) | payer MEDICARE, SELFPAY ==
[2025-08-11 17:00] LABS: PSA,Total- Diagnostic 10.20 ng/mL (0.00-4.00)
== END | disposition home or self-care (01) ==
LOC: LAB 15:57
PROVIDERS: PCP Family Medicine; Referring Provider Urology; Visit Provider Urology
DX: C61 Malignant neoplasm of prostate (principal)
CPT/HCPCS: 36415; 84153